=== PATIENT | male | born 1995 | race Caucasian/White ===

== ENCOUNTER 2019-10-18 12:57 | Inpatient (IN) | payer BC, OTHER ==
[2019-10-18] MEDS ORDERED: KETOROLAC 30 MG/ML 1 ML VIAL IM STA (13:33)
--- NOTE | 2019-10-18 13:35 | ED ---
General Adult HPI - General Chief complaint: Upper Respiratory Infection Stated complaint: Chest pain, Cough Time Seen by Provider: 10/18/19 13:24 Source: patient, family Mode of arrival: ambulatory Limitations: no limitations - History of Present Illness Initial comments: Dictation was produced using [employer] dictation software. please excuse any grammatical, word or spelling errors. Chief Complaint: 24-year-old male presents with persistent chest pain cough and URI symptoms. History of Present Illness: 24-year-old male presents with persistent URI symptoms. 3 days ago he was seen at urgent care prescribed Z-Lalit and promethazine. Patient states that his symptoms are going away green party and to come to the emergency department. Patient states he has sharp chest pain is worse with deep inspiration. States that it's very prominent especially when he coughs. No nausea vomiting or diarrhea. Patient states she's been having some runny nose. He was at work and told to go home because he had a hard time working because of his illness. The ROS documented in this emergency department record has been reviewed and confirmed by me. Those systems with pertinent positive or negative responses have been documented in the HPI. All other systems are other negative and/or noncontributory. PHYSICAL EXAM: General Impression: Alert and oriented x3, not in acute distress HEENT: Normocephalic atraumatic, extra-ocular movements intact, pupils equal and reactive to light bilaterally, mucous membranes moist. Cardiovascular: Heart regular rate and rhythm, S1&S2 audible, no murmurs, rubs or gallops Chest: Lungs clear to auscultation bilaterally, no rhonchi, no wheeze, no rales Abdomen: Bowel sounds present, abdomen soft, non-tender, non-distended, no organomegaly Musculoskeletal: Pulses present and equal in all extremities, no peripheral edema Motor: no focal deficits noted Neurological: CN II-XII grossly intact, no focal motor or sensory deficits noted Skin: Intact with no visualized rashes Psych: Normal affect and mood ED course: 24-year-old male presents with persistent URI. Signs upon arrival are within acceptable limits. Chest x-ray shows multilobar pneumonia worse in the left lower lung ann with left pleural effusion. Patient continues to be tachycardic. Given intravenous fluids. Patient also slightly hypoxic and is placed on nasal cannula. Given degree of patient symptoms have patient admitted for pneumonia failed outpatient treatment. Patient started on Zosyn. Discussed patient case with Dr. Mendoza was went except patient care. EKG interpretation: Ventricular rate 126, sinus tachycardia,. Interval 1:30, care is 80, QTc 463. No CO prolongation, no QTC prolongation, no ST or T-wave changes noted. EKG was performed after patient had a coughing fit. - Related Data Home Medications Medication Instructions Recorded Confirmed Azithromycin [Zithromax Z-pack] See Taper PO DIRECTED 10/18/19 10/18/19 Ibuprofen [Motrin Ib] 400 mg PO Q6H PRN 10/18/19 10/18/19 Promethazine 6.25MG/5Ml [Phenergan 6.25 - 12.5 mg PO QID PRN 10/18/19 10/18/19 Syrup] Allergies Allergy/AdvReac Type Severity Reaction Status Date / Time No Known Allergies Allergy Verified 10/18/19 15:25 Review of Systems ROS Statement: Those systems with pertinent positive or pertinent negative responses have been documented in the HPI. ROS Other: All systems not noted in ROS Statement are negative. Past Medical History Past Medical History: No Reported History History of Any Multi-Drug Resistant Organisms: None Reported Past Surgical History: No Surgical Hx Reported Past Psychological History: No Psychological Hx Reported Smoking Status: Never smoker Past Alcohol Use History: None Reported Past Drug Use History: None Reported General Exam Limitations: no limitations Course Vital Signs 10/18/19 10/18/19 10/18/19 13:06 14:42 15:06 Temperature 98.8 F Pulse Rate 92 114 H 120 H Respiratory 18 16 20 Rate Blood Pressure 124/80 120/87 129/89 O2 Sat by Pulse 98 86 L 95 Oximetry Medical Decision Making - Lab Data Result diagrams: 10/18/19 14:43 Lab Results 10/18/19 10/18/19 10/18/19 Range/Units 13:33 14:43 14:43 Sodium 137 (137-145) mmol/L Potassium 4.7 (3.5-5.1) mmol/L Chloride 100 (98-107) mmol/L Carbon Dioxide 28 (22-30) mmol/L Anion Gap 9 mmol/L BUN 19 (9-20) mg/dL Creatinine 0.90 (0.66-1.25) mg/dL Est GFR (CKD-EPI)AfAm >90 (>60 ml/min/1.73 sqM) Est GFR (CKD-EPI)NonAf >90 (>60 ml/min/1.73 sqM) Glucose 112 H (74-99) mg/dL Plasma Lactic Acid Adria 1.6 (0.7-2.0) mmol/L Calcium 8.5 (8.4-10.2) mg/dL Influenza Type A RNA Not Detected (Not Detectd) Influenza Type B (PCR) Not Detected (Not Detectd) Disposition Clinical Impression: Pneumonia Disposition: ADMITTED IP TO THIS HOSP Condition: Fair Referrals: None,Stated [Primary Care Provider] - 1-2 days Decision Time: 16:07
--- NOTE | 2019-10-18 13:57 | XR ---
EXAMINATION TYPE: XR chest 2V DATE OF EXAM: 10/18/2019 COMPARISON: Chest x-ray December 23, 2013. HISTORY: Cough. TECHNIQUE: Frontal and lateral views of the chest are obtained. FINDINGS: There is new Left greater than right lower lung opacities. Small left pleural effusion is present. Upper lungs are clear without pneumothorax. The cardiac silhouette size is within normal li mits. The osseous structures are intact. IMPRESSION: New left greater than right lower lung acute infiltrate and/or atelectasis along with ne w small left pleural effusion.
[2019-10-18] MEDS ORDERED: SODIUM CHLORIDE 0.9% 1,000 ML IV STA (14:20)
[2019-10-18 15:02] LABS: African American GFR (CKD) >90 (>60 ml/min/1.73 sqM); Anion Gap 9 mmol/L; Blood Urea Nitrogen 19 mg/dL (9-20); Calcium 8.5 mg/dL (8.4-10.2); Carbon Dioxide 28 mmol/L (22-30); Chloride 100 mmol/L (98-107); Glucose 112 mg/dL (74-99); Non-African American GFR(CKD) >90 (>60 ml/min/1.73 sqM); Sodium 137 mmol/L (137-145)
[2019-10-18 15:16] LABS: Potassium 4.7 mmol/L (3.5-5.1)
[2019-10-18] MEDS ORDERED: PIPERACILLIN-TAZOBACTAM 3.375 GM in SODIUM CHLORIDE 0.9% 100 ML IVPB STA (15:58)
[2019-10-18] MEDS ORDERED: ONDANSETRON 4 MG/2 ML VIAL IVP PRN (16:02)
[2019-10-18] MEDS ORDERED: ACETAMINOPHEN TAB 325 MG TAB PO PRN (16:02)
[2019-10-18] MEDS ORDERED: NALOXONE 0.4 MG/ML 1 ML VIAL IV PRN (16:02)
[2019-10-18 16:26] LABS: Neutrophils % (M) 54 %; Nucleated Red Blood Cells 0 /100 WBC (0-0); Total Cells Counted 100
[2019-10-18 16:28] LABS: Platelet Count 18 k/uL (150-450)
[2019-10-18] MEDS ORDERED: VANCOMYCIN IV PER PHARMACY 1 EACH MISC MISCELLANE PRN (16:37)
[2019-10-18 16:38] LABS: Eosinophils # (M) 0.27 k/uL (0-0.7); Lymphocytes # (M) 5.48 k/uL (1.0-4.8); Monocytes # (M) 0.55 k/uL (0-1.0); WBC 13.7 k/uL (3.8-10.6)
[2019-10-18 16:39] LABS: HCT 47.2 % (39.0-53.0); HGB 16.3 gm/dL (13.0-17.5); MCH 28.6 pg (25.0-35.0); MCHC 34.5 g/dL (31.0-37.0); MCV 82.8 fL (80.0-100.0); Mean Platelet Volume 10.2; RBC 5.69 m/uL (4.30-5.90); RDW 12.4 % (11.5-15.5)
[2019-10-18 16:40] LABS: Eosinophils % (A) 2 %; Lymphocytes % (A) 40 %; Monocytes % (A) 4 %; Neutrophils % (A) 54 %
[2019-10-18] MEDS ORDERED: RX INFO: IV CONTRAST WAS GIVEN 1 EACH MISC MISCELLANE PRN (16:41)
[2019-10-18 16:43] LABS: Eosinophils # (A) 0.3 k/uL (0-0.7); Lymphocytes # (A) 5.5 k/uL (1.0-4.8); Monocytes # (A) 0.6 k/uL (0-1.0); Neutrophils # (A) 7.4 k/uL (1.3-7.7)
[2019-10-18] MEDS ORDERED: VANCOMYCIN 1,500 MG in SODIUM CHLORIDE 0.9% 250 ML IVPB STA (16:43)
--- NOTE | 2019-10-18 17:12 | CT ---
EXAMINATION TYPE: CT chest w con DATE OF EXAM: 10/18/2019 COMPARISON: None HISTORY: Cough and chest pain CT DLP: 427.1 mGycm Automated exposure control for dose reduction was used. CONTRAST: CT scan of the chest is performed with IV Contrast, patient injected with 100 mL of Isovue 300. FINDINGS: There are bilateral pleural effusions. Heart size is normal. There is very small pericardial effusion . There is bilateral basilar atelectasis. There is bilateral basilar mild pulmonary infiltrates. I se e no hilar masses. There is no mediastinal adenopathy. Thoracic aorta is intact without evidence of a neurysm or dissection. Visualized thyroid gland appears normal. Upper abdominal soft tissues appear intact. IMPRESSION: Moderately large bilateral pleural effusions. Bilateral lower lobe pulmonary adjacent in filtrate and atelectasis. Small pericardial effusion. No pulmonary mass seen.
[2019-10-18 17:44] LABS: VBG PH 7.42 (7.31-7.41)
[2019-10-18] MEDS: SODIUM CHLORIDE 0.9% 1,000 ML IV SCH (17:51)
[2019-10-18 17:59] LABS: Partial Thromboplastin Time 21.9 sec (22.0-30.0); Prothrombin Time 10.8 sec (9.0-12.0)
--- NOTE | 2019-10-18 18:37 | P.CNPUL ---
History of Present Illness Consult date: 10/18/19 Reason for consult: dyspnea, pleural effusion History of present illness: This is a 24-year-old pleasant white male patient, who came into the hospital because of worsening shortness of breath. His symptoms started approximately 7- 10 days ago. He initially started off with symptoms of URI. Progressively got worse. He went and saw the urgent care on and he was given a course of Z-Lalit and promethazine. His condition progressively got worse and he became more short of breath as he was having some painful breathing and he was unable to fully expand his lungs. Minimal sore throat. [place] feverish and there was no documented temperature. He had some runny nose. He had some limited congested cough. He came into the emergency department and he was found to have a white cell count of 13.7, platelet count of 18,000, neutrophil of 54,000 with a 40% lymphocytes, his PT PTT were within normal limits, his influenza screen was n egative. He had a chest x-ray that showed bilateral lower lobe pulmonary infiltrates and effusions. CAT scan of the chest showed moderate-sized bilateral pleural effusions and adjacent infiltrates/atelectasis. Small pericardial effusion was also seen Clinically, the patient is a healthy male patient. No recent travel. No exposure to sick contacts. No history of any EBV infection and he was not considered to be promiscuous or at the high risk of having been exposed to HIV. No jaundice. No previous viral hepatitis. 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 In the emergency department, the patient was given a dose of vancomycin and Zosyn. He was admitted to the floor accordingly. No bleeding complications. No epistaxis. No headaches. No neck stiffness. No skin rashes. No 72 rheumatologic disease or arthritis. No smoking. No substance abuse. It is also worthwhile mentioning that the patient got a flu shot approximately 3 weeks ago for a local pharmacy and since then his condition is been progressively getting worse. He developed the symptoms of URI and subsequent shortness of breath since he got the flu shot. Review of Systems Constitutional: Reports fatigue, Reports weakness Eyes: denies as per HPI, denies blurred vision, denies bulging eye, denies decreased vision, denies diplopia, denies discharge, denies dry eye, denies irritation, denies itching, denies pain, denies photophobia, denies loss of peripheral vision, denies loss of vision, denies tunnel vision/blind spots Ears: deny: decreased hearing, ear discharge, earache, tinnitus Ears, nose, mouth and throat: Denies headache, Denies sore throat Cardiovascular: Reports chest pain, Reports decreased exercise tolerance, Reports dyspnea on exertion, Reports shortness of breath Respiratory: Reports dyspnea Gastrointestinal: Denies abdominal pain, Denies diarrhea, Denies nausea, Denies vomiting Genitourinary: Reports as per HPI Musculoskeletal: Reports as per HPI Musculoskeletal: absent: ankle pain, ankle stiffness, ankle swelling, as per HPI, elbow pain, elbow stiffness, elbow swelling, foot pain, foot stiffness, foot swelling, hand pain, hand stiffness, hand swelling, hip pain, hip stiffness, hip swelling, knee pain, knee stiffness, knee swelling, shoulder pain, shoulder stiffness, shoulder swelling, wrist pain, wrist stiffness, wrist swelling Integumentary: Reports as per HPI Neurological: Reports as per HPI Psychiatric: Reports as per HPI Endocrine: Reports as per HPI Allergic/Immunologic: Reports as per HPI Past Medical History Past Medical History: No Reported History History of Any Multi-Drug Resistant Organisms: None Reported Past Surgical History: No Surgical Hx Reported Past Psychological History: No Psychological Hx Reported Smoking Status: Never smoker Past Alcohol Use History: None Reported Past Drug Use History: None Reported Medications and Allergies Home Medications Medication Instructions Recorded Confirmed Type Azithromycin [Zithromax Z-pack] See Taper PO DIRECTED 10/18/19 10/18/19 History Ibuprofen [Motrin Ib] 400 mg PO Q6H PRN 10/18/19 10/18/19 History Promethazine 6.25MG/5Ml [Phenergan 6.25 - 12.5 mg PO QID PRN 10/18/19 10/18/19 History Syrup] Allergies Allergy/AdvReac Type Severity Reaction Status Date / Time No Known Allergies Allergy Verified 10/18/19 15:25 Physical Exam Vitals: Vital Signs Temp Pulse Resp BP Pulse Ox 10/18/19 17:57 115 H 20 124/87 99 10/18/19 17:30 108 H 14 121/78 96 10/18/19 16:30 105 H 22 115/77 96 10/18/19 16:21 98.4 F 101 H 20 115/78 98 10/18/19 16:00 100 21 129/94 95 10/18/19 15:06 120 H 20 129/89 95 10/18/19 14:42 114 H 16 120/87 86 L 10/18/19 14:30 114 H 20 120/80 86 L 10/18/19 13:06 98.8 F 92 18 124/80 98 Intake and Output 10/18/19 10/18/19 10/18/19 06:59 14:59 22:59 Other: Weight 92.986 kg The patient appeared well nourished and normally developed. Vital signs as documented. Currently the patient is on 2 L of oxygen by nasal cannula. He is tachycardic and his sinus tachycardia. Head exam is unremarkable. No scleral icterus or corneal arcus noted. Neck is without jugular venous distension, thyromegaly, or carotid bruits. Carotid upstrokes are brisk bilaterally. Lungs are diminished breath sounds bilaterally and there is dullness to percussion the mid and lower lung ann bilaterally.. Cardiac exam reveals the PMI to be normally sized and situated. Rhythm is regular. First and second heart sounds normal. No murmurs, rubs or gallops. Abdominal exam reveals normal bowel sounds, no masses, no organomegaly and no aortic enlargement. Extremities are nonedematous and both femoral and pedal pulses are normal.Examination of the sk in revealed no evidence of significant rashes, suspicious appearing nevi or other concerning lesions. Neurologically awake and alert and is no focal neurological deficits. Results - Laboratory Findings CBC and BMP: 10/18/19 15:43 10/18/19 14:43 PT/INR, D-dimer PT 10.8 sec (9.0-12.0) 10/18/19 17:35 INR 1.0 (<1.2) 10/18/19 17:35 Abnormal lab findings: Abnormal Labs 10/18/19 10/18/19 10/18/19 14:43 15:43 17:12 WBC 13.7 H Plt Count 18 L* Lymphocytes # 5.5 H Lymphocytes # (Manual) 5.48 H APTT VBG pH 7.42 H Glucose 112 H 10/18/19 17:35 WBC Plt Count Lymphocytes # Lymphocytes # (Manual) APTT 21.9 L VBG pH Glucose - Diagnostic Findings Chest x-ray: image reviewed CT scan - chest: image reviewed Assessment and Plan Plan: 1 severe acute shortness of breath following a flu shot approximately 3 weeks ago followed by symptoms of URI and currently patient is presenting to the hospital because of moderate-sized bilateral pleural effusion, hypoxic respiratory failure, worsening shortness of breath and new onset thrombocytopenia. Consider reaction to flu shot as flu shots have been reported to cause immune related reactions including [place] cytopenia. Consider viral p leuritis with secondary thrombocytopenia. I favor the possibility of an acute viral infection knowing the patient has significant lymphocytosis in the order of 40% and his CBC. Doubt bacterial infection at this point in time. Doubt malignancy. Doubt an acute rheumatologic presentation. 2 acute hypoxic respiratory failure secondary to above 3 acute thrombocytopenia, consider viral-induced ITP versus vaccination-induced 4 sinus tachycardia Plan Put the patient on IV Solu-Medrol. Check EBV titers, CMV titers, HIV cardiac markers. Monitor the platelet count. Obtain a hematology consultation. Unable to do thoracentesis in the setting of a significantly low platelet count however this will be done once the platelet count improved since above 50. Meanwhile, the patient's pulmonary status will be monitored and the patient was replaced on 2 L of oxygen by nasal cannula. The patient was given antibiotics in the emergency. I will hold off on antibiotic treatment for now pending further workup. We'll continue to follow.
[2019-10-18] MEDS: methylPREDNISolone SOD SUCCI 125 MG/2 ML VIAL IV SCH (19:59)
--- NOTE | 2019-10-18 20:14 | HP ---
HISTORY AND PHYSICAL DATE OF SERVICE: 10/18/2019 CHIEF COMPLAINTS: Shortness of breath and cough and sputum, chest pain. HISTORY OF PRESENT ILLNESS: This 24-year-old gentleman with a past medical history of no significant medical issues, not being followed by any primary physician in the outpatient setting, was not feeling well over the past several weeks. The patient started to have cough and sputum which were increasing in intensity. Patient also had shortness of breath. The pain is mostly in the left side which is increasing with respiration. Patient came to [facility] and was admitted for further evaluation and treatment. White count is elevated. Chest x-ray showed bilateral lesions. Patient also had thrombocytopenia. The patient also had a CT scan of the chest which showed moderately large bilateral pleural effusion; bilateral pulmonary opacities were also noted and small pericardial effusion was noted. Patient was admitted for further evaluation and treatment. The EKG showed sinus tachycardia, heart rate 126. There is no history of any fever, rigors, chills. No history of headache, loss of consciousness, seizures. No history any recent traveling elsewhere. No history of any sick contacts; however, the patient reports that the patient apparently was walking back and forth about 5 miles at night in cold weather to see movies at [employer] with his friends on multiple occasions. Apparently there were sick people in the theater as well. There is no history of any diarrhea, constipation, hematochezia, melena at this time. No history of any contact with infected or unusual pets. The patient was planning to be seen by Dr. España in the outpatient setting. PAST MEDICAL HISTORY: No significant medical or surgical issues. MEDICATIONS: The patient was taking promethazine, Zithromax, ibuprofen recently for the upper respiratory infection. ALLERGIES: NONE. 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 No history of smoking. No history of alcohol intake. No history of any vaping. REVIEW OF SYSTEMS: ENT: No diminished hearing. No diminished vision. CARDIOVASCULAR SYSTEM: No angina, palpitations. RESPIRATORY SYSTEM: As mentioned earlier. GI: As mentioned earlier. : No dysuria or retention. NERVOUS SYSTEM: No numbness, weakness. ALLERGY/IMMUNOLOGY: No asthma, hayfever. MUSCULOSKELETAL: As mentioned earlier. HEMATOLOGY/ONCOLOGY: No history of anemia. ENDOCRINE: No history of diabetes, hypothyroidism. CONSTITUTIONAL: As mentioned earlier. DERMATOLOGY: Negative. RHEUMATOLOGY: Negative. PSYCHIATRY: As mentioned earlier. PHYSICAL EXAMINATION: Patient alert and oriented x3. Pulse is 115, regular. Blood pressure 124/87, respiration 20, temperature 98.4, pulse ox 99% on 2 L. HEENT: Conjunctivae normal. Oral mucosa moist. NECK: No jugular venous distention. No carotid bruit. No lymph node enlargement. CARDIOVASCULAR SYSTEM: S1, S2 muffled. No S3. No S4. No pericardial rub. RESPIRATORY: Breathing efforts are mildly increased. Bilateral scattered rhonchi and crackles and pleural rub around the left lobe, part of where the breath sounds are markedly diminished. ABDOMEN: Soft, non-tender. No mass palpable. No hepatosplenomegaly. LEGS: No edema. No swelling. NERVOUS SYSTEM: Higher functions as mentioned earlier. Moves all 4 limbs. No focal motor or sensory deficit. LYMPHATICS: No lymph node palpable in neck, axillae or groin. SKIN: No ulcer, rash, bleeding. JOINTS: No active deforming arthropathy. LABS: WBC 13.3, hemoglobin 16.3, platelets 18. ASSESSMENT: 1. Acute bilateral pneumonia with possible left pleural effusion, left pleurisy, possibly viral. 2. Increased white count. 3. Severe thrombocytopenia, possibly secondary to viral etiology. 4. Increased random blood sugar. RECOMMENDATIONS AND DISCUSSION: In this 24-year-old gentleman who presented with multiple complex medical issues, at this time I recommend to continue current medications. His chest x-ray has been reviewed which showed bilateral lesions. The patient is given one dose of antibiotics. Dr. Soriano will review the patient and resume the antibiotics later. Otherwise, I would recommend baseline investigations, viral cultures. I would also recommend mycoplasma and Legionella antibodies and continue to monitor. Otherwise, DVT prophylaxis, incentive spirometry. Hematology/ oncology evaluation also has been sought because of the thrombocytopenia, which is rather acute in nature. Discussed with the patient. Discussed with the family, who understands and agrees. Further recommendations to follow. MMODL / IJN: [id number] /
[2019-10-18] MEDS: HYDROcodone/APAP 5-325MG 1 EACH TAB PO PRN (21:14)
[2019-10-19] MEDS ORDERED: VANCOMYCIN 1,500 MG in SODIUM CHLORIDE 0.9% 250 ML IVPB SCH ×2
[2019-10-19] MEDS: methylPREDNISolone SOD SUCCI 125 MG/2 ML VIAL IV SCH ×5 (00:19→23:31)
[2019-10-19] MEDS: SODIUM CHLORIDE 0.9% 1,000 ML IV SCH ×2 (00:19→23:32)
[2019-10-19 00:24] LABS: HIV 1 AB Non-Reactive (Non-Reactive); HIV 2 AB Non-Reactive (Non-Reactive); HIV AB P24 Non-Reactive (Non-Reactive); HIV P24 AG Non-Reactive (Non-Reactive)
[2019-10-19 00:40] LABS: EBV-EA (IgG) <0.2 AI; EBV-EBNA(IgG) >8.0 AI; EBV-VCA (IgG) <0.2 AI; EBV-VCA (IgM) <0.2 AI
[2019-10-19] MEDS: ALPRAZolam 0.25 MG TAB PO PRN (01:46)
[2019-10-19 02:21] LABS: Appearance,Urine Clear (Clear); Bilirubin,Urine Negative (Negative); Blood,Urine Negative (Negative); Color,Urine Yellow; Glucose,Urine (UA) Negative (Negative); Ketones,Urine 2+ (Negative); Leukocyte Esterase,Urine Negative (Negative); Mucus,Urine Few /hpf; Nitrite,Urine Negative (Negative); Protein,Urine 1+ (Negative); RBC,Urine 3 /hpf (0-5); Squamous Epithelial Cell,Urine <1 /hpf (0-4); Urobilinogen,Urine <2.0 mg/dL (<2.0); WBC,Urine 1 /hpf (0-5)
[2019-10-19 02:55] LABS: Specific Gravity,Urine >1.050 (1.001-1.035)
[2019-10-19] MEDS: PANTOPRAZOLE 40 MG TABLET PO SCH (07:28)
[2019-10-19 07:39] LABS: Basophils % (A) 0 %; Eosinophils % (A) 0 %; HGB 15.2 gm/dL (13.0-17.5); Lymphocytes # (A) 1.3 k/uL (1.0-4.8); Lymphocytes % (A) 12 %; MCH 28.9 pg (25.0-35.0); MCHC 34.7 g/dL (31.0-37.0); MCV 83.4 fL (80.0-100.0); Mean Platelet Volume 8.8; Monocytes # (A) 0.2 k/uL (0-1.0); Monocytes % (A) 2 %; Neutrophils # (A) 9.3 k/uL (1.3-7.7); Neutrophils % (A) 85 %; RBC 5.27 m/uL (4.30-5.90); RDW 12.6 % (11.5-15.5); WBC 10.9 k/uL (3.8-10.6)
[2019-10-19 07:56] LABS: African American GFR (CKD) >90 (>60 ml/min/1.73 sqM); Anion Gap 7 mmol/L; Blood Urea Nitrogen 16 mg/dL (9-20); Calcium 8.3 mg/dL (8.4-10.2); Carbon Dioxide 24 mmol/L (22-30); Chloride 106 mmol/L (98-107); Glucose 144 mg/dL (74-99); Non-African American GFR(CKD) >90 (>60 ml/min/1.73 sqM); Potassium 4.3 mmol/L (3.5-5.1); Sodium 137 mmol/L (137-145)
[2019-10-19 08:10] LABS: Platelet Count 29 k/uL (150-450); Polychromasia Present
--- NOTE | 2019-10-19 08:49 | XR ---
EXAMINATION TYPE: XR chest 1V portable DATE OF EXAM: 10/19/2019 CLINICAL HISTORY: Cough and pneumonia progress study. TECHNIQUE: Single AP portable upright view of the chest is obtained. COMPARISON: Chest x-ray and CT chest from one day earlier and older studies. FINDINGS: Persistent left greater than right bibasilar opacities. Persistent central vascular conges tion. Upper lungs clear without pneumothorax. Cardiac silhouette size remains within normal limits. O sseous structures are intact. IMPRESSION: Overall stable findings, small bilateral pleural effusions and mild central vascular co ngestion with left greater than right bibasilar acute infiltrate and/or atelectasis are all redemonst rated
--- NOTE | 2019-10-19 12:28 | P.PN ---
Subjective Progress Note Date: 10/19/19 This is a 24-year-old pleasant white male patient, who came into the hospital because of worsening shortness of breath. His symptoms started approximately 7- 10 days ago. He initially started off with symptoms of URI. Progressively got worse. He went and saw the urgent care on and he was given a course of Z-Lalit and promethazine. His condition progressively got worse and he became more short of breath as he was having some painful breathing and he was unable to fully expand his lungs. Minimal sore throat. Hemphill feverish and there was no documented temperature. He had some runny nose. He had some limited congested cough. He came into the emergency department and he was found to have a white cell count of 13.7, platelet count of 18,000, neutrophil of 54,000 with a 40% lymphocytes, his PT PTT were within normal limits, his influenza screen was negative. He had a chest x-ray that showed bilateral lower lobe pulmonary infiltrates and effusions. CAT scan of the chest showed moderate-sized bilateral pleural effusions and adjacent infiltrates/atelectasis. Small pericardial effusion was also seen Clinically, the patient is a healthy male patient. No recent travel. No expos ure to sick contacts. No history of any EBV infection and he was not considered to be promiscuous or at the high risk of having been exposed to HIV. No jaundice. No previous viral hepatitis. 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 In the emergency department, the patient was given a dose of vancomycin and Zosyn. He was admitted to the floor accordingly. No bleeding complications. No epistaxis. No headaches. No neck stiffness. No skin rashes. No 72 rheumatologic disease or arthritis. No smoking. No substance abuse. It is also worthwhile mentioning that the patient got a flu shot approximately 3 weeks ago for a local pharmacy and since then his condition is been progressively getting worse. He developed the symptoms of URI and subsequent shortness of breath since he got the flu shot. His evaluation of 10/19/2019 the patient is feeling better. He feels less short of breath. No fever. No chills. He is receiving IV fluids at the rate of 50 mL an hour. He is tolerating his diet. No nausea. No vomiting. No chest pain. EBV titers came back negative for acute EBV infection. HIV screen also came back negative. The patient is on IV Solu-Medrol. His platelet count is improving it's up to 29,000 on today's evaluation. He is still awaiting a hematology oncology evaluation. Objective - Vital Signs Vital signs: Vital Signs Temp 97.9 F 10/19/19 12:21 Pulse 100 10/19/19 12:21 Resp 17 10/19/19 12:21 BP 142/71 10/19/19 12:21 Pulse Ox 93 L 10/19/19 12:21 Intake & Output 10/18/19 10/19/19 10/19/19 18:59 06:59 18:59 Intake Total 2810 Balance 2810 Weight 92.986 kg 92.986 kg Intake: Intake, IV Titration 450 Amount Sodium Chloride 0.9% 1, 450 000 ml @ 50 mls/hr IV . Q20H [facility] Rx#:[id number] Oral 2360 Other: Voiding Method Toilet Toilet # Voids 3 # Bowel Movements 1 - Exam The patient appeared well nourished and normally developed. Vital signs as documented. Currently the patient is on 2 L of oxygen by nasal cannula. He is tachycardic and his sinus tachycardia. Head exam is unremarkable. No scleral icterus or corneal arcus noted. Neck is without jugular venous distension, thyromegaly, or carotid bruits. Carotid upstrokes are brisk bilaterally. Lungs are diminished breath sounds bilaterally and there is dullness to percussion the mid and lower lung ann bilaterally.. Cardiac exam reveals the PMI to be normally sized and situated. Rhythm is regular. First and second heart sounds normal. No murmurs, rubs or gallops. Abdominal exam reveals normal bowel sounds, no masses, no organomegaly and no aortic enlargement. Extremities are nonedematous and both femoral and pedal pulses are normal.Examination of the skin revealed no evidence of significant rashes, suspicious appearing nevi or other concerning lesions. Neurologically awake and alert and is no focal neurological deficits. - Labs CBC & Chem 7: 10/19/19 07:00 10/19/19 07:00 Labs: Abnormal Lab Results - Last 24 Hours (Table) 10/18/19 10/18/19 10/18/19 Range/Units 14:43 15:43 15:43 WBC 13.7 H (3.8-10.6) k/uL Plt Count 18 L* (150-450) k/uL Neutrophils # (1.3-7.7) k/uL Lymphocytes # 5.5 H (1.0-4.8) k/uL Lymphocytes # (Manual) 5.48 H (1.0-4.8) k/uL APTT (22.0-30.0) sec VBG pH (7.31-7.41) Glucose 112 H (74-99) mg/dL Calcium (8.4-10.2) mg/dL C-Reactive Protein (<10.0) mg/L Ur Specific [place] (1.001-1.035) Urine Protein (Negative) Urine Ketones (Negative) Urine Mucus (None) /hpf EBV Nuc Ag IgG Interp POSITIVE H (NEGATIVE) 10/18/19 10/18/19 10/18/19 Range/Units 17:12 17:35 17:35 WBC (3.8-10.6) k/uL Plt Count (150-450) k/uL Neutrophils # (1.3-7.7) k/uL Lymphocytes # (1.0-4.8) k/uL Lymphocytes # (Manual) (1.0-4.8) k/uL APTT 21.9 L (22.0-30.0) sec VBG pH 7.42 H (7.31-7.41) Glucose (74-99) mg/dL Calcium (8.4-10.2) mg/dL C-Reactive Protein 54.3 H (<10.0) mg/L Ur Specific [place] (1.001-1.035) Urine Protein (Negative) Urine Ketones (Negative) Urine Mucus (None) /hpf EBV Nuc Ag IgG Interp (NEGATIVE) 10/19/19 10/19/19 10/19/19 Range/Units 02:05 07:00 07:00 WBC 10.9 H (3.8-10.6) k/uL Plt Count 29 L D (150-450) k/uL Neutrophils # 9.3 H (1.3-7.7) k/uL Lymphocytes # (1.0-4.8) k/uL Lymphocytes # (Manual) (1.0-4.8) k/uL APTT (22.0-30.0) sec VBG pH (7.31-7.41) Glucose 144 H (74-99) mg/dL Calcium 8.3 L (8.4-10.2) mg/dL C-Reactive Protein (<10.0) mg/L Ur Specific [place] >1.050 H (1.001-1.035) Urine Protein 1+ H (Negative) Urine Ketones 2+ H (Negative) Urine Mucus Few H (None) /hpf EBV Nuc Ag IgG Interp (NEGATIVE) Assessment and Plan Plan: 1 severe acute shortness of breath following a flu shot approximately 3 weeks ago followed by symptoms of URI and currently patient is presenting to the hospital because of moderate-sized bilateral pleural effusion, hypoxic respirat ory failure, worsening shortness of breath and new onset thrombocytopenia. Consider reaction to flu shot as flu shots have been reported to cause immune related reactions including thrombocytopenia. Consider viral pleuritis with secondary thrombocytopenia. I favor the possibility of an acute viral infection knowing the patient has significant lymphocytosis in the order of 40% and his CBC. Doubt bacterial infection at this point in time. Doubt malignancy. Doubt an acute rheumatologic presentation. 2 acute hypoxic respiratory failure secondary to above 3 acute thrombocytopenia, consider viral-induced ITP versus vaccination-induced 4 sinus tachycardia Plan Put the patient on IV Solu-Medrol. Continue monitoring the platelet counts. We'll proceed with a thoracentesis once the platelet count improves as above 50.
[2019-10-19] MEDS: AZITHROMYCIN 500 MG in SODIUM CHLORIDE 0.9% 250 ML IVPB SCH (15:12)
[2019-10-19] MEDS ORDERED: ALBUTEROL NEBULIZED 2.5 MG/3 ML INHALATION PRN (17:27)
[2019-10-19] MEDS: INSULIN ASPART (NovoLOG) 100 UNIT/ML VIAL SQ SCH ×2 (17:59→22:13)
--- NOTE | 2019-10-19 18:32 | P.CONS ---
History of Present Illness - Reason for Consult Consult date: 10/19/19 acute thrombocytopenia - History of Present Illness This is a very pleasant 24-year-old gentleman with no significant past medical history other than low IQ, who was not feeling well over the past several weeks developed cough and sputum production and 17 and shortness of breath or pain on the left side which was increasing subsequently came to the hospital for further evaluation had a chest x-ray done that showed bilateral lesions and significant thrombocytopenia. The patient had a CAT scan of chest which showed large bilateral pleural effusion with pulmonary opacities. Patient was tachycardic as well .The patient has been evaluated by pulmonary, and antibiotics have been started. However patient is getting more short of breath. On review of labs white count of 13,000 elevated, platelet count has dropped to 18,000 with neutrophil count Elevated. As such no recent history of infections. 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 History of Any Multi-Drug Resistant Organisms: None Reported Past Surgical History: No Surgical Hx Reported Past Psychological History: No Psychological Hx Reported Smoking Status: Never smoker Past Alcohol Use History: None Reported Past Drug Use History: None Reported - Past Family History Father Family Medical History: No Reported History Medications and Allergies Home Medications Medication Instructions Recorded Confirmed Type Azithromycin [Zithromax Z-pack] See Taper PO DIRECTED 10/18/19 10/18/19 History Ibuprofen [Motrin Ib] 400 mg PO Q6H PRN 10/18/19 10/18/19 History Promethazine 6.25MG/5Ml [Phenergan 6.25 - 12.5 mg PO QID PRN 10/18/19 10/18/19 History Syrup] Allergies Allergy/AdvReac Type Severity Reaction Status Date / Time No Known Allergies Allergy Verified 10/18/19 15:25 Physical Exam Vitals: Vital Signs Temp Pulse Resp BP Pulse Ox 10/19/19 15:29 100 17 10/19/19 12:21 97.9 F 100 17 142/71 93 L 11/28/19 08:00 85 16 10/19/19 05:37 96.7 F L 85 16 119/76 92 L 10/18/19 23:26 92 L 10/18/19 23:00 97.4 F L 101 H 16 138/81 90 L Intake and Output 10/19/19 10/19/19 10/19/19 06:59 14:59 22:59 Intake Total 1630 860 360 Output Total 800 Balance 1630 860 -440 Intake: Intake, IV Titration 450 500 Amount Sodium Chloride 0.9% 1, 450 400 000 ml @ 50 mls/hr IV . Q20H [facility] Rx#:[id number] cefTRIAXone 1 gm In 100 Sodium Chloride 0.9% 50 ml @ 100 mls/hr IVPB Q24HR [facility] Rx#:[id number] Oral 1180 360 360 Output: Urine 800 Other: Voiding Method Toilet Toilet # Voids 3 3 3 # Bowel Movements 1 The patient appeared well nourished and normally developed. Vital signs as documented. Head exam is unremarkable. No scleral icterus or corneal arcus noted. Neck is without jugular venous distension, thyromegaly, or carotid bruits. Carotid upstrokes are brisk bilaterally. Lungs are clear to auscultation and percussion. Cardiac exam reveals the PMI to be normally sized and situated. Rhythm is regular. First and second heart sounds normal. No murmurs, rubs or gallops. Abdominal exam reveals normal bowel sounds, no masses, no organomegaly and no aortic enlargement. Extremities are nonedematous and both femoral and pedal pulses are normal. Results CBC & Chem 7: 10/19/19 07:00 10/19/19 07:00 Labs: Abnormal Lab Results - Last 24 Hours (Table) 10/18/19 10/18/19 10/19/19 Range/Units 15:43 17:35 02:05 WBC (3.8-10.6) k/uL Plt Count (150-450) k/uL Neutrophils # (1.3-7.7) k/uL Glucose (74-99) mg/dL Calcium (8.4-10.2) mg/dL C-Reactive Protein 54.3 H (<10.0) mg/L Ur Specific [place] >1.050 H (1.001-1.035) Urine Protein 1+ H (Negative) Urine Ketones 2+ H (Negative) Urine Mucus Few H (None) /hpf EBV Nuc Ag IgG Interp POSITIVE H (NEGATIVE) 10/19/19 10/19/19 Range/Units 07:00 07:00 WBC 10.9 H (3.8-10.6) k/uL Plt Count 29 L D (150-450) k/uL Neutrophils # 9.3 H (1.3-7.7) k/uL Glucose 144 H (74-99) mg/dL Calcium 8.3 L (8.4-10.2) mg/dL C-Reactive Protein (<10.0) mg/L Ur Specific [place] (1.001-1.035) Urine Protein (Negative) Urine Ketones (Negative) Urine Mucus (None) /hpf EBV Nuc Ag IgG Interp (NEGATIVE) Microbiology - Last 24 Hours (Table) 10/18/19 14:43 Blood Culture - Preliminary Blood No Growth after 24 hours Chest x-ray: report reviewed CT scan - chest: report reviewed (pneumonia with bilateral pleural effusions:) Assessment and Plan Plan: Impression and plan: 1. Acute thrombocytopenia: - Most likely secondary to acute viral infection possibility of ITP. - patient has been appropriately started on steroids.IV Solu-Medrol. - Rule out other causes check fibrinogen, d-dimer to rule out DIC, check haptoglobin and LDH for hemolysis. Check B12 folate levels. - peripheral smear for schistocytes. - Check EBV, CMV, Parvovirus, HIV and Hepatitis. - in view of presumed to ITP, plan for Immunoglobulin Therapy. - monitor platelets daily. 2. Respiratory distress, pneumonia with bilateral pleural effusions: - will likely need thoracentesis, pulmonary on consult. - Continue antibiotics. 3. Sinus tachycardia. 4. Leukocytosis likely secondary to infection. Thank you for allowing me to participate in the care of your patient. Neisha Luque MD Web Services Architect, [facility] [id number], [address] [place] [address] Office: [phone] Time with Patient: Greater than 30
[2019-10-19 19:56] LABS: African American GFR (CKD) >90 (>60 ml/min/1.73 sqM); Non-African American GFR(CKD) >90 (>60 ml/min/1.73 sqM)
[2019-10-19 19:57] LABS: Potassium 4.1 mmol/L (3.5-5.1)
[2019-10-19 20:00] LABS: Basophils % (A) 0 %; Eosinophils % (A) 0 %; HCT 43.2 % (39.0-53.0); HGB 14.8 gm/dL (13.0-17.5); Lymphocytes # (A) 1.1 k/uL (1.0-4.8); Lymphocytes % (A) 7 %; MCH 28.8 pg (25.0-35.0); MCHC 34.3 g/dL (31.0-37.0); MCV 84.1 fL (80.0-100.0); Mean Platelet Volume 9.9; Monocytes # (A) 0.6 k/uL (0-1.0); Monocytes % (A) 4 %; Neutrophils # (A) 14.3 k/uL (1.3-7.7); Neutrophils % (A) 88 %; RBC 5.14 m/uL (4.30-5.90); RDW 12.8 % (11.5-15.5); WBC 16.2 k/uL (3.8-10.6)
[2019-10-19 20:01] LABS: D-Dimer 2.21 mg/L FEU (<0.60); Platelet Count 63 k/uL (150-450)
[2019-10-19] MEDS: ALBUTEROL NEBULIZED 2.5 MG/3 ML INHALATION SCH (20:17)
[2019-10-19 21:41] LABS: Glucose,Whole Blood 162 mg/dL (75-99)
--- NOTE | 2019-10-19 23:41 | PN ---
PROGRESS NOTE DATE OF SERVICE: 10/19/2019 This 24-year-old gentleman admitted with bilateral pneumonia also thrombocytopenia. The viral pneumonia versus bacterial pneumonia is suspected at this time. The most recent chest x-ray which was personally reviewed by me showed significant pleural effusion, bilateral, left more than the right. Dr. Soriano is planning a possible thoracocentesis once the patient's platelets are stabilized. Hematology/Oncology is following the patient closely. PAST MEDICAL HISTORY: Reviewed. REVIEW OF SYSTEMS: CARDIOVASCULAR SYSTEM: No angina. RESPIRATORY: As mentioned earlier. GI: As mentioned earlier. : No dysuria. NERVOUS SYSTEM: No weakness. MEDICATIONS: 1. Tylenol 650 q.6h p.r.n. 2. [place] 5 mg p.r.n. 3. Zithromax 500 mg daily. 4. Rocephin 1 g daily. 5. Solu-Medrol 60 IV q.6h. 6. Narcan. 7. Zofran. 8. Protonix. PHYSICAL EXAM: Patient is alert, oriented x3. Pulse is 100, blood pressure 142/70, respirations 17, temperature 97.9, pulse ox 93 percent on 2 L. HEENT: Conjunctivae normal. Oral mucosa moist. NECK: No jugular venous distention. No lymph node enlargement. CARDIOVASCULAR: S1, S2. RESPIRATORY: Diminished breath sounds at the bases. Bilateral scattered rhonchi and crackles, left more than right. Breath sounds also diminished on the left side. ABDOMEN: Soft, nontender. LEGS: No swelling. NERVOUS SYSTEM: No focal deficits. LABS: WBC 10.8, platelets 29. C-reactive protein 54.3. EBV, HIV negative. ASSESSMENT: 1. Acute bilateral pneumonia, possible left pleural effusion, left pleurisy, possibly viral, possibly community-acquired. 2. Increased WBC. 3. Left pleural effusion. 4. Severe thrombocytopenia, possibly secondary to viral etiology or ITP. 5. Increased random blood sugar. RECOMMENDATION AND DISCUSSION: In this 24-year-old gentleman who presented with multiple complex medical issues, we will monitor the patient closely. Continue the antibiotics. Continue symptomatic treatment. Continue steroids. Monitor blood sugars closely. Otherwise, I would also recommend a short course of bronchodilators. Otherwise, Dr. Soriano is following the patient closely. Guarded prognosis. Viral cultures are awaited at this time. Possible thoracocentesis per Dr. Soriano. Further recommendations to follow. MMODL / IJN: [id number] /
[2019-10-20] MEDS: HYDROcodone/APAP 5-325MG 1 EACH TAB PO PRN (00:43)
[2019-10-20] MEDS: ALPRAZolam 0.25 MG TAB PO PRN (00:43)
[2019-10-20] MEDS: methylPREDNISolone SOD SUCCI 125 MG/2 ML VIAL IV SCH ×3 (05:49→17:41)
[2019-10-20 07:01] LABS: Basophils % (A) 0 %; Eosinophils % (A) 0 %; HCT 39.3 % (39.0-53.0); HGB 12.9 gm/dL (13.0-17.5); Lymphocytes # (A) 1.5 k/uL (1.0-4.8); Lymphocytes % (A) 8 %; MCH 28.1 pg (25.0-35.0); MCV 85.2 fL (80.0-100.0); Mean Platelet Volume 8.9; Monocytes # (A) 0.8 k/uL (0-1.0); Monocytes % (A) 5 %; Neutrophils # (A) 15.5 k/uL (1.3-7.7); Neutrophils % (A) 86 %; RBC 4.61 m/uL (4.30-5.90); RDW 12.9 % (11.5-15.5)
[2019-10-20 07:08] LABS: Glucose,Whole Blood 133 mg/dL (75-99)
[2019-10-20 07:19] LABS: African American GFR (CKD) >90 (>60 ml/min/1.73 sqM); Anion Gap 5 mmol/L; Blood Urea Nitrogen 13 mg/dL (9-20); Calcium 8.2 mg/dL (8.4-10.2); Carbon Dioxide 26 mmol/L (22-30); Chloride 110 mmol/L (98-107); Glucose 138 mg/dL (74-99); Non-African American GFR(CKD) >90 (>60 ml/min/1.73 sqM); Platelet Count 90 k/uL (150-450); Potassium 4.3 mmol/L (3.5-5.1); Sodium 141 mmol/L (137-145)
[2019-10-20] MEDS: INSULIN ASPART (NovoLOG) 100 UNIT/ML VIAL SQ SCH ×4 (07:32→21:21)
--- NOTE | 2019-10-20 08:02 | XR ---
EXAMINATION TYPE: XR chest 2V DATE OF EXAM: 10/20/2019 COMPARISON: Chest x-ray from yesterday. CT chest from 2 days ago. HISTORY: Pleural effusion. Pneumonia. TECHNIQUE: Frontal and lateral views of the chest are obtained. FINDINGS: There is persistent left basilar opacity. Persistent small bilateral pleural effusions see n best on lateral view. Upper lungs remain clear without pneumothorax. The cardiac silhouette size is stable and within normal limits. The osseous structures are intact. IMPRESSION: Small bilateral pleural effusions remain present. Persistent more focal left lateral bas ilar acute infiltrate and/or atelectasis.
[2019-10-20] MEDS: PANTOPRAZOLE 40 MG TABLET PO SCH (08:05)
[2019-10-20] MEDS: ALBUTEROL NEBULIZED 2.5 MG/3 ML INHALATION SCH ×3 (08:31→19:55)
[2019-10-20 11:35] LABS: Glucose,Whole Blood 121 mg/dL (75-99)
--- NOTE | 2019-10-20 12:33 | US ---
EXAMINATION TYPE: US chest DATE OF EXAM: 10/20/2019 COMPARISON: Chest x-ray earlier today. CT chest 2 days ago. CLINICAL HISTORY: Markings for thoracentesis by pulmonary staff. Pleural effusion TECHNIQUE: Targeted ultrasound of the posterior lower bilateral hemithoraces EXAM MEASUREMENTS: Right Pleural Effusion pocket size: 9.4 cm Right skin surface to fluid distance: 3.7 cm Left Pleural Effusion pocket size: 8.8 cm Left skin surface to fluid distance: 3.7 cm Right side marked for possible thoracentesis outside the dept. Left side marked for possible thoracentesis outside the dept. Pulmonologists are able to review the images in the patient?s EMR. Confirmation of persistent small to moderate-sized bilateral pleural effusions seen better on CT than x-ray IMPRESSIONS: As above.
[2019-10-20] MEDS: AZITHROMYCIN 500 MG in SODIUM CHLORIDE 0.9% 250 ML IVPB SCH (13:55)
[2019-10-20] MEDS: AZITHROMYCIN 500 MG TAB PO SCH (13:59)
[2019-10-20 14:18] LABS: Hepatitis A Antibody IgM Non-Reactive (Non-Reactive); Hepatitis B Core IgM Non-Reactive (Non-Reactive); Hepatitis B Surface Antigen Non-Reactive (Non-Reactive); Hepatitis C IgG Antibody Non-Reactive (Non-Reactive)
--- NOTE | 2019-10-20 15:06 | ECHOF ---
Referral Reason:pleurisy, pericardiits?? MEASUREMENTS -------- HEIGHT: 182.9 cm WEIGHT: 93.0 kg BP: RVIDd: 3.8 cm (< 3.3) IVSd: 1.0 cm (0.6 - 1.1) LVIDd: 5.0 cm (3.9 - 5.3) LVPWd: 1.1 cm (0.6 - 1.1) IVSs: 1.3 cm LVIDs: 3.2 cm LVPWs: 1.6 cm LA Diam: 3.6 cm (2.7 - 3.8) Ao Diam: 3.3 cm (2.0 - 3.7) AV Cusp: 2.3 cm (1.5 - 2.6) LA Diam: 3.9 cm (2.7 - 3.8) MV EXCURSION: 24.642 mm (> 18.000) MV EF SLOPE: 111 mm/s (70 - 150) EPSS: 0.3 cm MV E Nick: 0.89 m/s MV DecT: 203 ms MV A Nick: 0.54 m/s MV E/A Ratio: 1.65 FINDINGS -------- Sinus rhythm. This was a technically good study. LV size, wall thickness and systolic function are normal, with an EF greater than 55%. The left leobardo tricular size is normal. The right ventricle is normal in size. The left atrial size is normal. The right atrial size is normal. The aortic valve is trileaflet, and appears structurally normal. No aortic stenosis or regurgitation. Mild mitral regurgitation is present. Mild tricuspid regurgitation present. There is no evidence of pulmonary hypertension. The right v entricular systolic pressure, as measured by Doppler, is {RVSP}. There is no pulmonic regurgitation present. There is a small, generalized pericardial effusion present. CONCLUSIONS -------- 1. Sinus rhythm. 2. This was a technically good study. 3. LV size, wall thickness and systolic function are normal, with an EF greater than 55%. 4. The left ventricular size is normal. 5. The right ventricle is normal in size. 6. The left atrial size is normal. 7. The right atrial size is normal. 8. The aortic valve is trileaflet, and appears structurally normal. No aortic stenosis or regurgitati on. 9. Mild mitral regurgitation is present. 10. Mild tricuspid regurgitation present. 11. There is no evidence of pulmonary hypertension. 12. . 13. There is no pulmonic regurgitation present. 14. There is a small, generalized pericardial effusion present. INTEGRATED CIRCUIT FABRICATOR: Wandy Castro RDCS
--- NOTE | 2019-10-20 15:09 | P.PN ---
Subjective Progress Note Date: 10/20/19 This is a 24-year-old pleasant white male patient, who came into the hospital because of worsening shortness of breath. His symptoms started approximately 7- 10 days ago. He initially started off with symptoms of URI. Progressively got worse. He went and saw the urgent care on and he was given a course of Z-Lalit and promethazine. His condition progressively got worse and he became more short of breath as he was having some painful breathing and he was unable to fully expand his lungs. Minimal sore throat. [place] feverish and there was no documented temperature. He had some runny nose. He had some limited congested cough. He came into the emergency department and he was found to have a white cell count of 13.7, platelet count of 18,000, neutrophil of 54,000 with a 40% lymphocytes, his PT PTT were within normal limits, his influenza screen was negative. He had a chest x-ray that showed bilateral lower lobe pulmonary infiltrates and effusions. CAT scan of the chest showed moderate-sized bilateral pleural effusions and adjacent infiltrates/atelectasis. Small pericardial effusion was also seen Clinically, the patient is a healthy male patient. No recent travel. No expos ure to sick contacts. No history of any EBV infection and he was not considered to be promiscuous or at the high risk of having been exposed to HIV. No jaundice. No previous viral hepatitis. 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 In the emergency department, the patient was given a dose of vancomycin and Zosyn. He was admitted to the floor accordingly. No bleeding complications. No epistaxis. No headaches. No neck stiffness. No skin rashes. No 72 rheumatologic disease or arthritis. No smoking. No substance abuse. It is also worthwhile mentioning that the patient got a flu shot approximately 3 weeks ago for a local pharmacy and since then his condition is been progressively getting worse. He developed the symptoms of URI and subsequent shortness of breath since he got the flu shot. His evaluation of 10/19/2019 the patient is feeling better. He feels less short of breath. No fever. No chills. He is receiving IV fluids at the rate of 50 mL an hour. He is tolerating his diet. No nausea. No vomiting. No chest pain. EBV titers came back negative for acute EBV infection. HIV screen also came back negative. The patient is on IV Solu-Medrol. His platelet count is improving it's up to 29,000 on today's evaluation. He is still awaiting a hematology oncology evaluation. On 10/20/2019 and seeing the patient for a follow-up. Clinically improved. Less short of breath. No fever. No chills. Platelet counts are improving and the patient started on IV Solu-Medrol 60 mg every 6 hours. Repeat chest x-ray was done and the patient showed bilateral pleural effusion. Based on that, ultrasound of the chest was done and the patient was found to have a 9.4 cm pocket on the right upper lip 0.8 cm pocket on the left marked for thorace ntesis. Clinically however, the patient's pulse is up to 92% on room air and is not having any respiratory distress. He is afebrile for now. Breathing comfortably. Objective - Vital Signs Vital signs: Vital Signs Temp 97.7 F 10/20/19 12:11 Pulse 90 10/20/19 12:11 Resp 17 10/20/19 12:11 BP 116/60 10/20/19 12:11 Pulse Ox 92 L 10/20/19 12:57 Intake & Output 10/19/19 10/20/19 10/20/19 18:59 06:59 18:59 Intake Total 1220 1560 240 Output Total 800 Balance 420 1560 240 Intake: Intake, IV Titration 500 600 Amount Sodium Chloride 0.9% 1, 400 600 000 ml @ 50 mls/hr IV . Q20H [facility] Rx#:[id number] cefTRIAXone 1 gm In 100 Sodium Chloride 0.9% 50 ml @ 100 mls/hr IVPB Q24HR [facility] Rx#:[id number] Oral 720 960 240 Output: Urine 800 Other: Voiding Method Toilet Toilet Toilet # Voids 3 1 2 # Bowel Movements 1 - Exam The patient appeared well nourished and normally developed. Vital signs as documented. Currently the patient is on 2 L of oxygen by nasal cannula. The patient was transitioned to room air oxygen maintaining her pulse ox of 92%. He is tachycardic and his sinus tachycardia. Head exam is unremarkable. No scleral icterus or corneal arcus noted. Neck is without jugular venous distension, thyromegaly, or carotid bruits. Carotid upstrokes are brisk bilaterally. Lungs are diminished breath sounds bilaterally and there is dullness to percussion the mid and lower lung ann bilaterally.. Cardiac exam reveals the PMI to be normally sized and situated. Rhythm is regular. First and second heart sounds normal. No murmurs, rubs or gallops. Abdominal exam reveals normal bowel sounds, no masses, no organomegaly and no aortic enlargement. Extremities are nonedematous and both femoral and pedal pulses are normal.Examination of the skin revealed no evidence of significant rashes, suspicious appearing nevi or other concerning lesions. Neurologically awake and alert and is no focal neurological deficits. - Labs CBC & Chem 7: 10/20/19 06:33 10/20/19 06:33 Labs: Abnormal Lab Results - Last 24 Hours (Table) 10/19/19 10/19/19 10/19/19 Range/Units 19:14 19:14 19:14 WBC 16.2 H (3.8-10.6) k/uL Hgb (13.0-17.5) gm/dL Plt Count 63 L D (150-450) k/uL Neutrophils # 14.3 H (1.3-7.7) k/uL Haptoglobin (31.2-198.0) mg/dL D-Dimer 2.21 H (<0.60) mg/L FEU Chloride 108 H (98-107) mmol/L Glucose (74-99) mg/dL POC Glucose (mg/dL) (75-99) mg/dL Calcium (8.4-10.2) mg/dL 10/19/19 10/19/19 10/20/19 Range/Units 19:14 21:39 06:33 WBC 18.0 H (3.8-10.6) k/uL Hgb 12.9 L (13.0-17.5) gm/dL Plt Count 90 L (150-450) k/uL Neutrophils # 15.5 H (1.3-7.7) k/uL Haptoglobin 305.0 H (31.2-198.0) mg/dL D-Dimer (<0.60) mg/L FEU Chloride (98-107) mmol/L Glucose (74-99) mg/dL POC Glucose (mg/dL) 162 H (75-99) mg/dL Calcium (8.4-10.2) mg/dL 10/20/19 10/20/19 10/20/19 Range/Units 06:33 07:03 11:33 WBC (3.8-10.6) k/uL Hgb (13.0-17.5) gm/dL Plt Count (150-450) k/uL Neutrophils # (1.3-7.7) k/uL Haptoglobin (31.2-198.0) mg/dL D-Dimer (<0.60) mg/L FEU Chloride 110 H (98-107) mmol/L Glucose 138 H (74-99) mg/dL POC Glucose (mg/dL) 133 H 121 H (75-99) mg/dL Calcium 8.2 L (8.4-10.2) mg/dL Microbiology - Last 24 Hours (Table) 10/18/19 14:43 Blood Culture - Preliminary Blood No Growth after 24 hours Assessment and Plan Plan: 1 severe acute shortness of breath following a flu shot approximately 3 weeks ago followed by symptoms of URI and currently patient is presenting to the hospital because of moderate-sized bilateral pleural effusion, hypoxic respiratory failure, worsening shortness of breath and new onset thrombocytopenia. Consider reaction to flu shot as flu shots have been reported to cause immune related reactions including thrombocytopenia. Consider viral pleuritis with secondary thrombocytopenia. I favor the possibility of an acute viral infection knowing the patient has significant lymphocytosis in the order of 40% and his CBC. Doubt bacterial infection at this point in time. Doubt malignancy. Doubt an acute rheumatologic presentation. 2 acute hypoxic respiratory failure secondary to above 3 acute thrombocytopenia, consider viral-induced ITP versus vaccination-induced, improving 4 sinus tachycardia Plan The patient is improving. Platelet counts are up to 90,000 and currently is not having any significant shortness of breath. Pulse ox is 92% on room air. Ultrasound the chest showed bilateral pleural effusions. The patient denies centimeters pocket on the right and 8 cm pocket on the left and this will need a therapeutic paracentesis at the later stage for symptomatic relief. Continue the bronchodilators. Do not see any role for antibiotics as this is most likely of viral episodes. We'll continue to follow.
[2019-10-20 16:55] LABS: Glucose,Whole Blood 144 mg/dL (75-99)
--- NOTE | 2019-10-20 18:12 | PN ---
PROGRESS NOTE DATE OF SERVICE: 10/20/2019 This 24-year-old gentleman who was admitted with acute bilateral pneumonia is on IV antibiotics. The patient also had thrombocytopenia. The patient was thought to have community-acquired pneumonia; thrombocytopenia could be reactive in nature. The possibility of ITP is also being noted. A 2D echo with Doppler was also done which showed ejection fraction more than 55% and a small generalized pericardial effusion was noted. No chest pain. No palpitations. Patient also had a chest ultrasound which showed persistent small- to moderate-sized bilateral pleural effusion. Dr. Soriano is following the patient closely. Past medical history reviewed. REVIEW OF SYSTEMS: CARDIOVASCULAR SYSTEM: No angina, palpitations. RESPIRATORY SYSTEM: As mentioned earlier. GI: As mentioned earlier. : No dysuria or retention. NERVOUS SYSTEM: No numbness, weakness. CURRENT MEDICATIONS: Reviewed. They include: 1. Tylenol p.r.n. 2. Alpine 5 mg q.6 p.r.n. 3. Ventolin 2.5 t.i.d. p.r.n. 4. Xanax 0.25 t.i.d. 5. Zithromax 500 mg p.o. daily. 6. Omnicef 300 mg p.o. b.i.d. 7. NovoLog scale. 8. Solu-Medrol 60 IV q.6. 9. Narcan. 10.Zofran. 11.Protonix p.r.n. PHYSICAL EXAMINATION: Patient is alert, oriented x3. Pulse is 90, blood pressure 116/60, respirations 17, temperature 97.7, pulse ox 96% on 2 L. HEENT: Conjunctivae normal. Oral mucosa moist. NECK: No jugular venous distention. No carotid bruit. No lymph node enlargement. CARDIOVASCULAR SYSTEM: S1, S2 muffled. RESPIRATORY SYSTEM: Breath sounds diminished at the bases. A few scattered rhonchi and crackles. ABDOMEN: Soft, non-tender. No mass palpable. LEGS: No edema. No swelling. NERVOUS SYSTEM: Higher functions as mentioned earlier. Moves all 4 limbs. No focal motor or sensory deficit. LYMPHATICS: No lymph node palpable in neck, axillae or groin. SKIN: No ulcer, rash, bleeding. JOINTS: No active bleeding. LABS: WBC 18, hemoglobin 12.9, platelets 90. Glucose 133. Potassium 8.2. ASSESSMENT: 1. Acute bilateral pneumonia with bilateral pleural effusion, left more than right, with left pleurisy, possibly community-acquired, possibly viral. 2. Increased white count. 3. Mild to moderate bilateral pleural effusion. 4. Severe thrombocytopenia, possibly secondary to viral etiology, infectious, or idiopathic thrombocytopenic purpura. 5. Increased random blood sugar. RECOMMENDATIONS AND DISCUSSION: In this 24-year-old gentleman who presented with multiple complex medical issues, we will monitor the patient closely, continue the current medications, continue symptomatic treatment. We will continue with high-dose IV steroids. Continue the bronchodilators, empiric antibiotics. We will continue to monitor. Guarded prognosis because of multiple complex medical issues. Continue the bronchodilators. Further recommendations to follow. MMODL / IJN: [id number] /
[2019-10-20 19:34] LABS: Glucose,Whole Blood 206 mg/dL (75-99)
--- NOTE | 2019-10-20 21:05 | P.PN ---
Subjective Progress Note Date: 10/20/19 Principal diagnosis: thrombocytopenia This is a very pleasant 24-year-old gentleman with no significant past medical history other than low IQ, who was not feeling well over the past several weeks developed cough and sputum production and 17 and shortness of breath or pain on the left side which was increasing subsequently came to the hospital for further evaluation had a chest x-ray done that showed bilateral lesions and significant thrombocytopenia. The patient had a CAT scan of chest which showed large bilateral pleural effusion with pulmonary opacities. Patient was tachycardic as well .The patient has been evaluated by pulmonary, and antibiotics have been started. However patient is getting more short of breath. On review of labs white count of 13,000 elevated, platelet count has dropped to 18,000 with neutrophil count Elevated. As such no recent history of infections. 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 patient is feeling better no evidence of bleeding, Objective - Vital Signs Vital signs: Vital Signs Temp 97.7 F 10/20/19 12:11 Pulse 88 10/20/19 20:05 Resp 17 10/20/19 16:25 BP 116/60 10/20/19 12:11 Pulse Ox 94 L 10/20/19 19:55 Intake & Output 10/20/19 10/20/19 10/21/19 06:59 18:59 06:59 Intake Total 1560 240 Output Total 400 Balance 1560 -160 Intake: Intake, IV Titration 600 Amount Sodium Chloride 0.9% 1, 600 000 ml @ 50 mls/hr IV . Q20H [facility] Rx#:[id number] Oral 960 240 Output: Urine 400 Other: Voiding Method Toilet Toilet # Voids 1 3 - Exam The patient appeared well nourished and normally developed. Vital signs as documented. Head exam is unremarkable. No scleral icterus or corneal arcus noted. Neck is without jugular venous distension, thyromegaly, or carotid bruits. Carotid upstrokes are brisk bilaterally. Lungs are clear to auscultation and percussion. Cardiac exam reveals the PMI to be normally sized and situated. Rhythm is regular. First and second heart sounds normal. No murmurs, rubs or gallops. Abdominal exam reveals normal bowel sounds, no masses, no organomegaly and no aortic enlargement. Extremities are nonedematous and both femoral and pedal pulses are normal. - Labs CBC & Chem 7: 10/20/19 06:33 10/20/19 06:33 Labs: Abnormal Lab Results - Last 24 Hours (Table) 10/19/19 10/19/19 10/19/19 Range/Units 19:14 19:14 21:39 WBC (3.8-10.6) k/uL Hgb (13.0-17.5) gm/dL Plt Count (150-450) k/uL Neutrophils # (1.3-7.7) k/uL Pathologist Review See comment A Haptoglobin 305.0 H (31.2-198.0) mg/dL Chloride (98-107) mmol/L Glucose (74-99) mg/dL POC Glucose (mg/dL) 162 H (75-99) mg/dL Calcium (8.4-10.2) mg/dL 10/20/19 10/20/19 10/20/19 Range/Units 06:33 06:33 07:03 WBC 18.0 H (3.8-10.6) k/uL Hgb 12.9 L (13.0-17.5) gm/dL Plt Count 90 L (150-450) k/uL Neutrophils # 15.5 H (1.3-7.7) k/uL Pathologist Review Haptoglobin (31.2-198.0) mg/dL Chloride 110 H (98-107) mmol/L Glucose 138 H (74-99) mg/dL POC Glucose (mg/dL) 133 H (75-99) mg/dL Calcium 8.2 L (8.4-10.2) mg/dL 10/20/19 10/20/19 10/20/19 Range/Units 11:33 16:49 19:34 WBC (3.8-10.6) k/uL Hgb (13.0-17.5) gm/dL Plt Count (150-450) k/uL Neutrophils # (1.3-7.7) k/uL Pathologist Review Haptoglobin (31.2-198.0) mg/dL Chloride (98-107) mmol/L Glucose (74-99) mg/dL POC Glucose (mg/dL) 121 H 144 H 206 H (75-99) mg/dL Calcium (8.4-10.2) mg/dL Microbiology - Last 24 Hours (Table) 10/18/19 14:43 Blood Culture - Preliminary Blood No Growth after 48 hours Assessment and Plan Plan: Impression and plan: 1. 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 - patient has been appropriately started on steroids.IV Solu-Medrol. - Rule out other causes check fibrinogen, d-dimer to rule out DIC, check haptoglobin and LDH for hemolysis. Check B12 folate levels. - peripheral smear for schistocytes. - Check EBV, CMV, Parvovirus, HIV and Hepatitis. - Current white count elevated at 18, hemoglobin 12.9, platelets improving to 90,000, will reserve immunoglobulins in case there is a relapse. - Lymphocytosis suggests a viral infection, elevated haptoglobin globulin secondary to acute phase reaction, neutrophilia present. Smear does not show any evidence of leukemia or lymphoma. - PT/INR APTT normal, nnormal LDH,fibrinogen normal d-dimer elevated no evidence of DIC - monitor platelets daily. - Will suggest a slow taper of steroids over couple of weeks. 2. Respiratory distress, pneumonia with bilateral pleural effusions: - will likely need thoracentesis, pulmonary on consult. - Continue antibiotics. - cultures negative. 3. Sinus tachycardia. 4. Leukocytosis likely secondary to infection. Thank you for allowing me to participate in the care of your patient. Neisha Luque MD Publications Production Supervisor, [facility] [id number], [address] [place] [address] Office: [phone] Time with Patient: Greater than 30
[2019-10-21] MEDS: methylPREDNISolone SOD SUCCI 125 MG/2 ML VIAL IV SCH ×3 (00:27→12:22)
[2019-10-21 07:01] LABS: Glucose,Whole Blood 145 mg/dL (75-99)
[2019-10-21] MEDS: INSULIN ASPART (NovoLOG) 100 UNIT/ML VIAL SQ SCH ×4 (07:59→21:32)
[2019-10-21] MEDS: PANTOPRAZOLE 40 MG TABLET PO SCH (08:00)
[2019-10-21] MEDS: CEFDINIR 300 MG CAP PO SCH ×2 (08:01→21:32)
[2019-10-21] MEDS: ALBUTEROL NEBULIZED 2.5 MG/3 ML INHALATION SCH ×3 (09:25→20:19)
[2019-10-21 11:40] LABS: Glucose,Whole Blood 199 mg/dL (75-99)
[2019-10-21] MEDS: AZITHROMYCIN 500 MG TAB PO SCH (12:22)
--- NOTE | 2019-10-21 13:36 | P.PN ---
Subjective Progress Note Date: 10/21/19 This is a 24-year-old pleasant white male patient, who came into the hospital because of worsening shortness of breath. His symptoms started approximately 7- 10 days ago. He initially started off with symptoms of URI. Progressively got worse. He went and saw the urgent care on and he was given a course of Z-Lalit and promethazine. His condition progressively got worse and he became more short of breath as he was having some painful breathing and he was unable to fully expand his lungs. Minimal sore throat. [place] feverish and there was no documented temperature. He had some runny nose. He had some limited congested cough. He came into the emergency department and he was found to have a white cell count of 13.7, platelet count of 18,000, neutrophil of 54,000 with a 40% lymphocytes, his PT PTT were within normal limits, his influenza screen was negative. He had a chest x-ray that showed bilateral lower lobe pulmonary infiltrates and effusions. CAT scan of the chest showed moderate-sized bilateral pleural effusions and adjacent infiltrates/atelectasis. Small pericardial effusion was also seen Clinically, the patient is a healthy male patient. No recent travel. No expos ure to sick contacts. No history of any EBV infection and he was not considered to be promiscuous or at the high risk of having been exposed to HIV. No jaundice. No previous viral hepatitis. 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 In the emergency department, the patient was given a dose of vancomycin and Zosyn. He was admitted to the floor accordingly. No bleeding complications. No epistaxis. No headaches. No neck stiffness. No skin rashes. No 70 rheumatologic disease or arthritis. No smoking. No substance abuse. It is also worthwhile mentioning that the patient got a flu shot approximately 3 weeks ago for a local pharmacy and since then his condition is been progressively getting worse. He developed the symptoms of URI and subsequent shortness of breath since he got the flu shot. His evaluation of 10/19/2019 the patient is feeling better. He feels less short of breath. No fever. No chills. He is receiving IV fluids at the rate of 50 mL an hour. He is tolerating his diet. No nausea. No vomiting. No chest pain. EBV titers came back negative for acute EBV infection. HIV screen also came back negative. The patient is on IV Solu-Medrol. His platelet count is improving it's up to 29,000 on today's evaluation. He is still awaiting a hematology oncology evaluation. On 10/20/2019 and seeing the patient for a follow-up. Clinically improved. Less short of breath. No fever. No chills. Platelet counts are improving and the patient started on IV Solu-Medrol 60 mg every 6 hours. Repeat chest x-ray was done and the patient showed bilateral pleural effusion. Based on that, ultrasound of the chest was done and the patient was found to have a 9.4 cm pocket on the right upper lip 0.8 cm pocket on the left marked for thorace ntesis. Clinically however, the patient's pulse is up to 92% on room air and is not having any respiratory distress. He is afebrile for now. Breathing comfortably. 10/21/2019 I'm seeing the patient for a follow-up. No major complaints. His cough and upon taking a deep breath. Ultrasound the chest was done and showed bilateral pleural effusion and the patient would benefit from thoracentesis for symptomatic relief. He remains on IV Solu-Medrol. The platelet count from yesterday was up to 90,000. No fever. No chills. No night sweats no other new complaints otherwise for now. Objective - Vital Signs Vital signs: Vital Signs Temp 97.4 F L 10/21/19 12:56 Pulse 68 10/21/19 12:56 Resp 20 10/21/19 12:56 BP 146/76 10/21/19 12:56 Pulse Ox 93 L 10/21/19 12:56 Intake & Output 10/20/19 10/21/19 10/21/19 18:59 06:59 18:59 Intake Total 240 Output Total 400 Balance -160 Intake: Oral 240 Output: Urine 400 Other: Voiding Method Toilet Toilet # Voids 3 2 - Exam The patient appeared well nourished and normally developed. Vital signs as documented. Currently the patient is on room air oxygen The patient was tr ansitioned to room air oxygen maintaining her pulse ox of 92%. He is tachycardic and his sinus tachycardia. Head exam is unremarkable. No scleral icterus or corneal arcus noted. Neck is without jugular venous distension, thyromegaly, or carotid bruits. Carotid upstrokes are brisk bilaterally. Lungs are diminished breath sounds bilaterally and there is dullness to percussion the mid and lower lung ann bilaterally.. Cardiac exam reveals the PMI to be normally sized and situated. Rhythm is regular. First and second heart sounds normal. No murmurs, rubs or gallops. Abdominal exam reveals normal bowel sounds, no masses, no organomegaly and no aortic enlargement. Extremities are nonedematous and both femoral and pedal pulses are normal.Examination of the skin revealed no evidence of significant rashes, suspicious appearing nevi or other concerning lesions. Neurologically awake and alert and is no focal neurological deficits. - Labs CBC & Chem 7: 10/20/19 06:33 10/20/19 06:33 Labs: Abnormal Lab Results - Last 24 Hours (Table) 10/19/19 10/20/19 10/20/19 Range/Units 19:14 16:49 19:34 Pathologist Review See comment A POC Glucose (mg/dL) 144 H 206 H (75-99) mg/dL 10/21/19 10/21/19 Range/Units 06:58 11:28 Pathologist Review POC Glucose (mg/dL) 145 H 199 H (75-99) mg/dL Microbiology - Last 24 Hours (Table) 10/18/19 14:43 Blood Culture - Preliminary Blood No Growth after 48 hours Assessment and Plan Plan: 1 severe acute shortness of breath following a flu shot approximately 3 weeks ag o followed by symptoms of URI and currently patient is presenting to the hospital because of moderate-sized bilateral pleural effusion, hypoxic respiratory failure, worsening shortness of breath and new onset thrombocytopenia. Consider reaction to flu shot as flu shots have been reported to cause immune related reactions including thrombocytopenia. Consider viral pleuritis with secondary thrombocytopenia. I favor the possibility of an acute viral infection knowing the patient has significant lymphocytosis in the order of 40% and his CBC. Doubt bacterial infection at this point in time. Doubt malignancy. Doubt an acute rheumatologic presentation. 2 acute hypoxic respiratory failure secondary to above 3 acute thrombocytopenia, consider viral-induced ITP versus vaccination-induced, improving 4 sinus tachycardia Plan The patient is improving. Platelet counts are up to 90,000 and currently is not having any significant shortness of breath. The patient has significant amount of pleural effusions bilaterally. Also some markings have been obtained and I'm going to do sequential thoracentesis starting with the right and then probably by tomorrow will do the left. Consent was signed. Procedure was explained. Continued IV Solu-Medrol with gradual taper. We'll continue to follow.
[2019-10-21 13:37] LABS: Basophils % (A) 0 %; Eosinophils % (A) 0 %; HCT 41.3 % (39.0-53.0); HGB 13.6 gm/dL (13.0-17.5); Lymphocytes % (A) 6 %; MCH 28.1 pg (25.0-35.0); MCHC 32.9 g/dL (31.0-37.0); MCV 85.2 fL (80.0-100.0); Mean Platelet Volume 7.6; Monocytes # (A) 0.6 k/uL (0-1.0); Monocytes % (A) 4 %; Neutrophils # (A) 14.7 k/uL (1.3-7.7); Neutrophils % (A) 89 %; RBC 4.85 m/uL (4.30-5.90); RDW 13.1 % (11.5-15.5); WBC 16.5 k/uL (3.8-10.6)
[2019-10-21 13:43] LABS: Platelet Count 184 k/uL (150-450)
--- NOTE | 2019-10-21 14:39 | XR ---
EXAMINATION TYPE: XR chest 1V portable DATE OF EXAM: 10/21/2019 CLINICAL HISTORY: Difficulty breathing progress study. TECHNIQUE: Single AP portable upright view of the chest is obtained. COMPARISON: Chest x-ray from one day earlier FINDINGS: Stable left greater than right bibasilar opacities. Upper lungs remain clear without pneum othorax. Cardiac silhouette size stable and within normal limits. IMPRESSION: Persistent left greater than right bibasilar acute infiltrate and atelectasis and left gr eater than right small pleural effusions. No significant change from prior.
[2019-10-21 15:42] LABS: Appearance,BF Clear; Color,BF Yellow; Nucleated Cells, Body Fluid 90 /uL; RBC, Body Fluid 370 /uL
[2019-10-21 15:49] LABS: Mononuclear WBC,Body Fluid 23 %; Polynuclear WBC,Body Fluid 76 %; Total Cells Counted,Body Fluid 100
[2019-10-21 17:07] LABS: Glucose,Whole Blood 157 mg/dL (75-99)
[2019-10-21] MEDS: HYDROcodone/APAP 5-325MG 1 EACH TAB PO PRN (17:14)
--- NOTE | 2019-10-21 18:40 | P.PN ---
Subjective Progress Note Date: 10/21/19 Principal diagnosis: thrombocytopenia This is a very pleasant 24-year-old gentleman with no significant past medical history other than low IQ, who was not feeling well over the past several weeks developed cough and sputum production and 17 and shortness of breath or pain on the left side which was increasing subsequently came to the hospital for further evaluation had a chest x-ray done that showed bilateral lesions and significant thrombocytopenia. The patient had a CAT scan of chest which showed large bilateral pleural effusion with pulmonary opacities. Patient was tachycardic as well .The patient has been evaluated by pulmonary, and antibiotics have been started. However patient is getting more short of breath. On review of labs white count of 13,000 elevated, platelet count has dropped to 18,000 with neutrophil count Elevated. As such no recent history of infections. 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 patient is feeling better no evidence of bleeding, Objective - Vital Signs Vital signs: Vital Signs Temp 97.4 F L 10/21/19 12:56 Pulse 68 10/21/19 12:56 Resp 20 10/21/19 12:56 BP 146/76 10/21/19 12:56 Pulse Ox 93 L 10/21/19 12:56 Intake & Output 10/20/19 10/21/19 10/21/19 18:59 06:59 18:59 Intake Total 240 Output Total 400 Balance -160 Intake: Oral 240 Output: Urine 400 Other: Voiding Method Toilet Toilet # Voids 3 2 2 - Exam The patient appeared well nourished and normally developed. Vital signs as documented. Head exam is unremarkable. No scleral icterus or corneal arcus noted. Neck is without jugular venous distension, thyromegaly, or carotid bru its. Carotid upstrokes are brisk bilaterally. Lungs are clear to auscultation and percussion. Cardiac exam reveals the PMI to be normally sized and situated. Rhythm is regular. First and second heart sounds normal. No murmurs, rubs or gallops. Abdominal exam reveals normal bowel sounds, no masses, no organomegaly and no aortic enlargement. Extremities are nonedematous and both femoral and pedal pulses are normal. - Labs CBC & Chem 7: 10/21/19 13:18 10/20/19 06:33 Labs: Abnormal Lab Results - Last 24 Hours (Table) 10/20/19 10/21/19 10/21/19 Range/Units 19:34 06:58 11:28 WBC (3.8-10.6) k/uL Neutrophils # (1.3-7.7) k/uL POC Glucose (mg/dL) 206 H 145 H 199 H (75-99) mg/dL 10/21/19 10/21/19 Range/Units 13:18 16:55 WBC 16.5 H (3.8-10.6) k/uL Neutrophils # 14.7 H (1.3-7.7) k/uL POC Glucose (mg/dL) 157 H (75-99) mg/dL Microbiology - Last 24 Hours (Table) 10/18/19 14:43 Blood Culture - Preliminary Blood No Growth after 72 hours Assessment and Plan Plan: Impression and plan: 1. 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 - patient has been appropriately started on steroids.IV Solu-Medrol. - Rule out other causes check fibrinogen, d-dimer to rule out DIC, check haptoglobin and LDH for hemolysis. Check B12 folate levels. - peripheral smear for schistocytes. - Check EBV, CMV, Parvovirus, HIV and Hepatitis. - Current white count elevated at 18, hemoglobin 12.9, platelets improving to 90,000, will reserve immunoglobulins in case there is a relapse. - Lymphocytosis suggests a viral infection, elevated haptoglobin globulin secondary to acute phase reaction, neutrophilia present. Smear does not show any evidence of leukemia or lymphoma. - PT/INR APTT normal, nnormal LDH,fibrinogen normal d-dimer elevated no evidence of DIC - monitor platelets daily. - Will suggest a slow taper of steroids over 1-2 weeks. - platelets improved currently 184 now. 2. Respiratory distress, pneumonia with bilateral pleural effusions: - will likely need thoracentesis, pulmonary on consult. - Continue antibiotics. - cultures negative. 3. Sinus tachycardia. 4. Leukocytosis likely secondary to infection. Thank you for allowing me to participate in the care of your patient. Neisha Luque MD Polymerization Engineer, [facility] [id number], [address] [place] [address] Office: [phone]
--- NOTE | 2019-10-21 19:24 | PN ---
PROGRESS NOTE DATE OF SERVICE: 10/21/2019. This is a 24-year-old gentleman admitted with bilateral pneumonia and pleural effusion is being closely monitored. The patient also has thrombocytopenia, which is also improving at this time. The most recent chest x-ray did show significant pleural effusion on the left side. Dr. Soriano is following the patient closely. The platelets have improved to 184. The patient underwent thoracocentesis by Dr. Soriano today. No chest pain. No palpitations. No fever. EXAM: Alert and oriented x3. Pulse is 68, blood pressure 140/76, respiration 20, temperature 97.4, pulse ox 98% on room air. HEENT: Conjunctivae normal. Oral mucosa moist. NECK: No jugular venous distention. No lymph node enlargement. CARDIOVASCULAR: S1, S2. RESPIRATORY: Diminished breath sounds at the bases. A few scattered rhonchi and crackles. ( ) left side. ABDOMEN: Soft, nontender. LEGS: No swelling. NERVOUS SYSTEM: No focal deficits. LABS: WBC 16.2, hemoglobin 13.6, glucose 157. ASSESSMENT: 1. Acute bilateral pneumonia with bilateral pleural effusion, left more than the right with left pleurisy, possibly community-acquired pneumonia, possibly viral. 2. Increased WBC. 3. Status post thoracocentesis of the left pleural effusion. 4. Mild to moderate bilateral pleural effusion. 5. Severe thrombocytopenia possibly secondary to viral etiology or infectious idiopathic thrombocytic purpura, improved. 6. Increased random blood sugar. RECOMMENDATIONS AND DISCUSSION: I recommend to continue current management and continue symptomatic treatment. Continue with incentive spirometry. Continue the bronchodilators. Continue the antibiotics. See orders. Continue steroids. Guarded prognosis because of multiple complex medical issues. Further recommendations to follow. MMODL / IJN: [id number] /
[2019-10-21 19:44] LABS: Glucose,Whole Blood 135 mg/dL (75-99)
[2019-10-21 22:52] LABS: Glucose, BF Source Pleural Fluid; Glucose, Body Fluid 188 mg/dL; LDH, Body Fluid Source Pleural Fluid; Total Protein, Body Fluid 3000 mg/dL
--- NOTE | 2019-10-21 23:09 | PCN ---
PROCEDURE NOTE Indication Pleural effusion. A time-out was completed verifying correct patient, procedure, site, positioning , and implant (s) or special equipment if applicable. Ultrasound guidance was/was not used and appropriate fluid pocket was identified and marked. Patient was positioned, prepped and draped in usual sterile fashion. Lidocaine was used to anesthetize the area. Thoracentesis catheter was introduced into the pleural space and fluid was removed. Blood loss was none. A chest x-ray was ordered to evaluate for pneumothorax. Total Fluid Removed 800 mL Color of Fluid Turbid, dark yellowish pleural fluid. Fluid was sent for appropriate laboratory tests. Patient tolerated the procedure well and there were no complications. No complications. The patient tolerated the procedure well. MMODL / IJN: [id number] /
[2019-10-22 06:48] LABS: Glucose,Whole Blood 99 mg/dL (75-99)
[2019-10-22] MEDS: ALBUTEROL NEBULIZED 2.5 MG/3 ML INHALATION SCH ×2 (07:40→12:25)
[2019-10-22 07:42] LABS: Basophils % (A) 0 %; Eosinophils % (A) 0 %; HCT 43.2 % (39.0-53.0); HGB 14.1 gm/dL (13.0-17.5); Lymphocytes # (A) 2.1 k/uL (1.0-4.8); Lymphocytes % (A) 16 %; MCH 28.3 pg (25.0-35.0); MCHC 32.7 g/dL (31.0-37.0); MCV 86.7 fL (80.0-100.0); Mean Platelet Volume 7.6; Monocytes # (A) 0.8 k/uL (0-1.0); Monocytes % (A) 6 %; Neutrophils # (A) 10.6 k/uL (1.3-7.7); Neutrophils % (A) 78 %; Platelet Count 235 k/uL (150-450); RBC 4.99 m/uL (4.30-5.90); RDW 13.2 % (11.5-15.5); WBC 13.7 k/uL (3.8-10.6)
[2019-10-22] MEDS: INSULIN ASPART (NovoLOG) 100 UNIT/ML VIAL SQ SCH ×2 (07:51→12:58)
[2019-10-22] MEDS: CEFDINIR 300 MG CAP PO SCH (08:13)
[2019-10-22] MEDS: PANTOPRAZOLE 40 MG TABLET PO SCH (08:13)
[2019-10-22] MEDS ORDERED: predniSONE 20 MG TAB PO SCH (09:00)
--- NOTE | 2019-10-22 10:55 | XR ---
EXAMINATION TYPE: XR chest 1V portable DATE OF EXAM: 10/22/2019 COMPARISON: 10/21/2019 HISTORY: Chest pain TECHNIQUE: Single frontal view of the chest is obtained. FINDINGS: Left lower lobe infiltrate noted has improved but does persist. The cardiac silhouette size is within normal limits. The osseous structures are intact. IMPRESSION: 1. Left lower lobe infiltrate noted has improved but does persist.
--- NOTE | 2019-10-22 11:10 | P.PN ---
Subjective Progress Note Date: 10/22/19 This is a 24-year-old pleasant white male patient, who came into the hospital because of worsening shortness of breath. His symptoms started approximately 7- 10 days ago. He initially started off with symptoms of URI. Progressively got worse. He went and saw the urgent care on and he was given a course of Z-Lalit and promethazine. His condition progressively got worse and he became more short of breath as he was having some painful breathing and he was unable to fully expand his lungs. Minimal sore throat. Endeavor feverish and there was no documented temperature. He had some runny nose. He had some limited congested cough. He came into the emergency department and he was found to have a white cell count of 13.7, platelet count of 18,000, neutrophil of 54,000 with a 40% lymphocytes, his PT PTT were within normal limits, his influenza screen was negative. He had a chest x-ray that showed bilateral lower lobe pulmonary infiltrates and effusions. CAT scan of the chest showed moderate-sized bilateral pleural effusions and adjacent infiltrates/atelectasis. Small pericardial effusion was also seen Clinically, the patient is a healthy male patient. No recent travel. No expos ure to sick contacts. No history of any EBV infection and he was not considered to be promiscuous or at the high risk of having been exposed to HIV. No jaundice. No previous viral hepatitis. 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 In the emergency department, the patient was given a dose of vancomycin and Zosyn. He was admitted to the floor accordingly. No bleeding complications. No epistaxis. No headaches. No neck stiffness. No skin rashes. No 72 rheumatologic disease or arthritis. No smoking. No substance abuse. It is also worthwhile mentioning that the patient got a flu shot approximately 3 weeks ago for a local pharmacy and since then his condition is been progressively getting worse. He developed the symptoms of URI and subsequent shortness of breath since he got the flu shot. His evaluation of 10/19/2019 the patient is feeling better. He feels less short of breath. No fever. No chills. He is receiving IV fluids at the rate of 50 mL an hour. He is tolerating his diet. No nausea. No vomiting. No chest pain. EBV titers came back negative for acute EBV infection. HIV screen also came back negative. The patient is on IV Solu-Medrol. His platelet count is improving it's up to 29,000 on today's evaluation. He is still awaiting a hematology oncology evaluation. On 10/20/2019 and seeing the patient for a follow-up. Clinically improved. Less short of breath. No fever. No chills. Platelet counts are improving and the patient started on IV Solu-Medrol 60 mg every 6 hours. Repeat chest x-ray was done and the patient showed bilateral pleural effusion. Based on that, ultrasound of the chest was done and the patient was found to have a 9.4 cm pocket on the right upper lip 0.8 cm pocket on the left marked for thorace ntesis. Clinically however, the patient's pulse is up to 92% on room air and is not having any respiratory distress. He is afebrile for now. Breathing comfortably. 10/21/2019 I'm seeing the patient for a follow-up. No major complaints. His cough and upon taking a deep breath. Ultrasound the chest was done and showed bilateral pleural effusion and the patient would benefit from thoracentesis for symptomatic relief. He remains on IV Solu-Medrol. The platelet count from yesterday was up to 90,000. No fever. No chills. No night sweats no other new complaints otherwise for now. On 10/22/2019 I'm seeing the patient for a follow-up. Note that a thoracentesis of the right lung was done yesterday and a total of 800 mL of fluid was removed successfully. On today's evaluation, the patient is feeling better. The plan was to proceed with a left-sided thoracentesis today knowing that the patient had moderate sized bilateral pleural effusions. No fever. No chills. No chest pain. The procedure was completed yesterday without any complications. No other issues over the past 24 hours. Objective - Vital Signs Vital signs: Vital Signs Temp 97.5 F L 10/22/19 05:00 Pulse 84 10/22/19 07:56 Resp 14 10/22/19 05:00 BP 124/75 10/22/19 05:00 Pulse Ox 94 L 10/22/19 05:00 Intake & Output 10/21/19 10/22/19 10/22/19 18:59 06:59 18:59 Intake Total 540 Output Total 400 Balance 140 Intake: Oral 540 Output: Urine 400 Other: Voiding Method Toilet Toilet # Voids 2 2 - Exam The patient appeared well nourished and normally developed. Vital signs as documented. Currently the patient is on room air oxygen The patient was transitioned to room air oxygen maintaining her pulse ox of 92%. He is tachycardic and his sinus tachycardia. Head exam is unremarkable. No scleral icterus or corneal arcus noted. Neck is without jugular venous distension, thyromegaly, or carotid bruits. Carotid upstrokes are brisk bilaterally. Lungs are diminished breath sounds in the left lung base and there is dullness to percussion the mid and lower lung ann bilaterally.. Cardiac exam reveals the PMI to be normally sized and situated. Rhythm is regular. First and second heart sounds normal. No murmurs, rubs or gallops. Abdominal exam reveals normal bowel sounds, no masses, no organomegaly and no aortic enlargement. Extremities are nonedematous and both femoral and pedal pulses are normal.Examination of the skin revealed no evidence of significant rashes, suspicious appearing nevi or other concerning lesions. Neurologically awake and alert and is no focal neurological deficits. - Labs CBC & Chem 7: 10/22/19 06:41 10/20/19 06:33 Labs: Abnormal Lab Results - Last 24 Hours (Table) 10/21/19 10/21/19 10/21/19 Range/Units 11:28 13:18 16:55 WBC 16.5 H (3.8-10.6) k/uL Neutrophils # 14.7 H (1.3-7.7) k/uL POC Glucose (mg/dL) 199 H 157 H (75-99) mg/dL 10/21/19 10/22/19 Range/Units 19:42 06:41 WBC 13.7 H (3.8-10.6) k/uL Neutrophils # 10.6 H (1.3-7.7) k/uL POC Glucose (mg/dL) 135 H (75-99) mg/dL Microbiology - Last 24 Hours (Table) 10/21/19 12:00 Gram Stain - Preliminary Pericardial Fluid Body Fluid Culture - Preliminary 10/18/19 14:43 Blood Culture - Preliminary Blood No Growth after 72 hours Assessment and Plan Plan: 1 severe acute shortness of breath following a flu shot approximately 3 weeks ago followed by symptoms of URI and currently patient is presenting to the hospital because of moderate-sized bilateral pleural effusion, hypoxic respiratory failure, worsening shortness of breath and new onset thrombocytopenia. Consider reaction to flu shot as flu shots have been reported to cause immune related reactions including thrombocytopenia. Consider viral pleuritis with secondary thrombocytopenia. I favor the possibility of an acute viral infection knowing the patient has significant lymphocytosis in the order of 40% and his CBC. Doubt bacterial infection at this point in time. Doubt malignancy. Doubt an acute rheumatologic presentation. 2 acute hypoxic respiratory failure secondary to above, recovered 3 acute thrombocytopenia, consider viral-induced ITP versus vaccination-induced, improving 4 sinus tachycardia, recovered 5 bilateral pleural effusion postthoracentesis on the right successful evacuation of 800 mL of fluids. There is some residual left-sided pleural eff usion for now. Plan Patient will undergo a left-sided thoracentesis today for symptomatic relief. The fluid is probably a transudate. Awaiting fluid cultures. Awaiting fluid cytology. Platelet count improved. He was taken off the Solu-Medrol. He can be going home today following the thoracentesis on a prednisone burst taper. He can be followed up in my office next week.
[2019-10-22 11:15] LABS: Glucose,Whole Blood 123 mg/dL (75-99)
[2019-10-22 11:29] VITALS: BP 121/78; RESP 20; TEMP 98.2
[2019-10-22 12:26] VITALS: PULSE 86
[2019-10-22] MEDS: AZITHROMYCIN 500 MG TAB PO SCH (13:00)
--- NOTE | 2019-10-22 19:55 | P.PN ---
Subjective Progress Note Date: 10/22/19 Principal diagnosis: thrombocytopenia This is a very pleasant 24-year-old gentleman with no significant past medical history other than low IQ, who was not feeling well over the past several weeks developed cough and sputum production and 17 and shortness of breath or pain on the left side which was increasing subsequently came to the hospital for further evaluation had a chest x-ray done that showed bilateral lesions and significant thrombocytopenia. The patient had a CAT scan of chest which showed large bilateral pleural effusion with pulmonary opacities. Patient was tachycardic as well .The patient has been evaluated by pulmonary, and antibiotics have been started. However patient is getting more short of breath. On review of labs white count of 13,000 elevated, platelet count has dropped to 18,000 with neutrophil count Elevated. As such no recent history of infections. 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 patient is feeling better no evidence of bleeding, Objective - Vital Signs Vital signs: Vital Signs Temp 98.2 F 10/22/19 11:28 Pulse 86 10/22/19 12:36 Resp 20 10/22/19 11:28 BP 121/78 10/22/19 11:28 Pulse Ox 98 10/22/19 11:28 Intake & Output 10/22/19 10/22/19 10/23/19 06:59 18:59 06:59 Intake Total 540 Output Total 400 Balance 140 Intake: Oral 540 Output: Urine 400 Other: Voiding Method Toilet Toilet # Voids 2 - Exam The patient appeared well nourished and normally developed. Vital signs as documented. Head exam is unremarkable. No scleral icterus or corneal arcus noted. Neck is without jugular venous distension, thyromegaly, or carotid bruits. Carotid upstrokes are brisk bilaterally. Lungs are clear to auscultation and percussion. Cardiac exam reveals the PMI to be normally sized and situated. Rhythm is regular. First and second heart sounds normal. No murmurs, rubs or gallops. Abdominal exam reveals normal bowel sounds, no masses, no organomegaly and no aortic enlargement. Extremities are nonedematous and both femoral and pedal pulses are normal. - Labs CBC & Chem 7: 10/22/19 06:41 10/20/19 06:33 Labs: Abnormal Lab Results - Last 24 Hours (Table) 10/22/19 10/22/19 Range/Units 06:41 11:04 WBC 13.7 H (3.8-10.6) k/uL Neutrophils # 10.6 H (1.3-7.7) k/uL POC Glucose (mg/dL) 123 H (75-99) mg/dL Microbiology - Last 24 Hours (Table) 10/21/19 12:00 Gram Stain - Preliminary Pericardial Fluid Body Fluid Culture - Preliminary 10/18/19 14:43 Blood Culture - Preliminary Blood No Growth after 96 hours Assessment and Plan Plan: Impression and plan: 1. 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 - patient has been appropriately started on steroids.IV Solu-Medrol. - Rule out other causes check fibrinogen, d-dimer to rule out DIC, check haptoglobin and LDH for hemolysis. Check B12 folate levels. - peripheral smear for schistocytes. - Check EBV, CMV, Parvovirus, HIV and Hepatitis. - Current white count elevated at 18, hemoglobin 12.9, platelets improving to 90,000, will reserve immunoglobulins in case there is a relapse. - Lymphocytosis suggests a viral infection, elevated haptoglobin globulin secondary to acute phase reaction, neutrophilia present. Smear does not show any evidence of leukemia or lymphoma. - PT/INR APTT normal, nnormal LDH,fibrinogen normal d-dimer elevated no evidence of DIC - monitor platelets daily. - Will suggest a slow taper of steroids over 1-2 weeks. - platelets improved currently 184 now. 2. Respiratory distress, pneumonia with bilateral pleural effusions: - will likely need thoracentesis, pulmonary on consult. - Continue antibiotics. - cultures negative. 3. Sinus tachycardia. 4. Leukocytosis likely secondary to infection. Thank you for allowing me to participate in the care of your patient. Neisha Luque MD Compounding And Finishing Supervisor, [facility] [id number], [address] [place] [address] Office: [phone]
--- NOTE | 2019-10-23 07:59 | DS ---
DISCHARGE SUMMARY DATE OF SERVICE: 10/22/2019 FINAL DIAGNOSES: 1. Acute bilateral pneumonia with bilateral pleural effusion left more than the right with left pleurisy and possible community-acquired pneumonia, possibly viral. 2. Left pleural effusion, status post thoracocentesis. 3. Increased WBC. 4. Mild to moderate bilateral pleural effusion. 5. Severe thrombocytopenia, possibly secondary to viral etiology of infectious etiology which improved. 6. Increased random pressures. DISCHARGE DISPOSITION: The patient will be discharged in A stable condition with guarded prognosis. HISTORY OF PRESENT ILLNESS: This is a 24-year-old gentleman with a past medical history of no significant medical issues, admitted with bilateral pneumonia as well as thrombocytopenia, treated with IV antibiotics and steroids. Patient improved significantly. Dr. Soriano saw the patient. Left pleural effusion was tapped by Dr. Soriano, the final reports are pending at this time. Overall, patient made significant improvement. Hematology, Oncology also saw the patient. Platelets normalized at this time. On exam, vitals are stable. CARDIOVASCULAR SYSTEM: S1, S2. RESPIRATION few scattered rhonchi. ABDOMEN: Soft. NERVOUS SYSTEM: No focal deficits. DISCHARGE ADVICE: 1. Diet is cardiac diet. 2. Activity limited until followup. 3. Follow up with Dr. España in 2-3 days. 4. Follow up with Dr. Soriano as recommended. DISCHARGE MEDICATIONS: 1. Motrin p.r.n. 2. Phenergan p.r.n. 3. Omnicef 300 mg p.o. b.i.d. for 5 days. 4. Prednisone 40 mg daily for 3 days, 30 for 3 days, 20 for 3 days, 10 for 3 days. 5. ProAir q.i.d. 6. Zithromax 500 mg p.o. daily. Once again, the patient will be discharged in a stable condition with guarded prognosis. MMODL / IJN: [id number] /
== END 2019-10-22 13:10 | disposition home or self-care (01) | DRG 193 ==
LOC: EC 12:57 → 3NMEDONC 16:03
PROVIDERS: ADMIT Hospitalist; ATTEND Hospitalist
PROC: 0W9B3ZX Drainage of Left Pleural Cavity, Percutaneous Approach, Diagnostic (ICD-10-PCS; principal; 2019-10-21)
DX: J12.9 Viral pneumonia, unspecified (principal); J96.01 Acute respiratory failure with hypoxia; J90 Pleural effusion, not elsewhere classified; D69.3 Immune thrombocytopenic purpura; I31.3 Pericardial effusion (noninflammatory); J98.11 Atelectasis; D72.820 Lymphocytosis (symptomatic); R73.9 Hyperglycemia, unspecified
CPT/HCPCS: 36415; 71045; 71046; 71260; 76604; 80048; 80051; 81001; 82565; 82803; 82945; 83010; 83605; 83615; 84157; 84443; 84520; 85025; 85379; 85384; 85610; 85652; 85730; 86140; 86645; 86663; 86664; 86665; 86705; 86709; 86738; 86747; 86803; 87040; 87070; 87205; 87252; 87340; 87390; 87449; 87496; 87498; 87502; 87529; 87634; 87798; 89050; 93005; 93306; 94640; 94760; 96361; 96365; 96372; 99285

== ENCOUNTER → 2019-11-08 | Outpatient (CLI) | payer BC ==
[2019-11-08 09:06] LABS: Basophils # (A) 0.1 k/uL (0-0.2); Basophils % (A) 2 %; Eosinophils # (A) 0.3 k/uL (0-0.7); Eosinophils % (A) 5 %; HCT 45.3 % (39.0-53.0); HGB 15.2 gm/dL (13.0-17.5); Lymphocytes # (A) 2.6 k/uL (1.0-4.8); Lymphocytes % (A) 41 %; MCH 29.1 pg (25.0-35.0); MCHC 33.6 g/dL (31.0-37.0); MCV 86.5 fL (80.0-100.0); Mean Platelet Volume 7.4; Monocytes # (A) 0.6 k/uL (0-1.0); Monocytes % (A) 9 %; Neutrophils # (A) 2.6 k/uL (1.3-7.7); Neutrophils % (A) 41 %; RBC 5.24 m/uL (4.30-5.90); RDW 12.4 % (11.5-15.5); WBC 6.4 k/uL (3.8-10.6)
[2019-11-08 09:47] LABS: Platelet Count 62 k/uL (150-450)
== END | disposition home or self-care (01) ==
LOC: LABWHC1 08:43
PROVIDERS: ATTEND Internal Medicine Critical Care Medicine
DX: J90 Pleural effusion, not elsewhere classified (principal)
CPT/HCPCS: 36415; 85025

== ENCOUNTER → 2019-12-17 | Outpatient (CLI) | payer BC ==
[2019-12-17 12:17] LABS: HCT 46.3 % (39.0-53.0); HGB 15.1 gm/dL (13.0-17.5); MCH 27.4 pg (25.0-35.0); MCHC 32.6 g/dL (31.0-37.0); MCV 84.1 fL (80.0-100.0); Mean Platelet Volume 6.7; RDW 12.3 % (11.5-15.5); WBC 5.3 k/uL (3.8-10.6)
[2019-12-17 12:20] LABS: ALT 29 U/L (4-49); AST 29 U/L (17-59); African American GFR (CKD) >90 (>60 ml/min/1.73 sqM); Albumin 4.4 g/dL (3.5-5.0); Alkaline Phosphatase 60 U/L (38-126); Anion Gap 7 mmol/L; Blood Urea Nitrogen 15 mg/dL (9-20); Calcium 9.3 mg/dL (8.4-10.2); Carbon Dioxide 27 mmol/L (22-30); Chloride 107 mmol/L (98-107); Glucose 105 mg/dL (74-99); Non-African American GFR(CKD) >90 (>60 ml/min/1.73 sqM); Potassium 4.6 mmol/L (3.5-5.1); Sodium 141 mmol/L (137-145); Total Bilirubin 0.7 mg/dL (0.2-1.3); Total Protein 7.1 g/dL (6.3-8.2)
[2019-12-17 12:26] LABS: Platelet Count 329 k/uL (150-450)
== END | disposition home or self-care (01) ==
LOC: RADXRMAIN 11:24
PROVIDERS: ATTEND Internal Medicine
DX: D69.6 Thrombocytopenia, unspecified (principal)
CPT/HCPCS: 80053; 85027

== ENCOUNTER 2022-02-09 18:06 | Emergency (ER) | payer BC ==
[2022-02-09 18:13] VITALS: TEMP 97.6
[2022-02-09] MEDS ORDERED: SODIUM CHLORIDE 0.9% 500 ML 500 ML IV STA (18:52)
[2022-02-09 19:29] LABS: Basophils # (A) 0.1 k/uL (0-0.2); Basophils % (A) 1 %; Eosinophils # (A) 0.2 k/uL (0-0.7); Eosinophils % (A) 3 %; HCT 46.4 % (39.0-53.0); HGB 15.4 gm/dL (13.0-17.5); Lymphocytes # (A) 2.3 k/uL (1.0-4.8); Lymphocytes % (A) 26 %; MCH 28.8 pg (25.0-35.0); MCHC 33.3 g/dL (31.0-37.0); MCV 86.5 fL (80.0-100.0); Mean Platelet Volume 6.9; Monocytes # (A) 0.6 k/uL (0-1.0); Monocytes % (A) 7 %; Neutrophils # (A) 5.4 k/uL (1.3-7.7); Neutrophils % (A) 61 %; Platelet Count 327 k/uL (150-450); RBC 5.36 m/uL (4.30-5.90); RDW 11.9 % (11.5-15.5); WBC 8.8 k/uL (3.8-10.6)
[2022-02-09 19:39] LABS: ALT 82 U/L (4-49); AST 38 U/L (17-59); African American GFR (CKD) >90 (>60 ml/min/1.73 sqM); Albumin 4.4 g/dL (3.5-5.0); Alkaline Phosphatase 67 U/L (38-126); Anion Gap 9 mmol/L; Blood Urea Nitrogen 15 mg/dL (9-20); Calcium 9.2 mg/dL (8.4-10.2); Carbon Dioxide 24 mmol/L (22-30); Chloride 106 mmol/L (98-107); Glucose 165 mg/dL (74-99); Lipase 41 U/L (23-300); Magnesium 1.8 mg/dL (1.6-2.3); Non-African American GFR(CKD) >90 (>60 ml/min/1.73 sqM); Sodium 139 mmol/L (137-145); Total Bilirubin 0.5 mg/dL (0.2-1.3); Total Protein 7.1 g/dL (6.3-8.2)
[2022-02-09 19:43] LABS: INR 0.9 (<1.2); Partial Thromboplastin Time 23.8 sec (22.0-30.0); Prothrombin Time 9.8 sec (9.0-12.0)
--- NOTE | 2022-02-09 20:50 | XR ---
EXAMINATION TYPE: XR chest 2V DATE OF EXAM: 02/09/2022 8:46 PM COMPARISON:Chest radiographs from 10/22/2019 TECHNIQUE: XR chest 2V Frontal and lateral views of the chest. CLINICAL INDICATION:Male, 26 years old with history of chest pain; FINDINGS: Lungs/Pleura: There is no evidence of pleural effusion, focal consolidation, or pneumothorax. Pulmonary vascularity: Unremarkable. Heart/mediastinum: Cardiomediastinal silhouette is unremarkable. Musculoskeletal: No acute osseous pathology. Other findings: None IMPRESSION: No acute cardiopulmonary disease/process.
--- NOTE | 2022-02-09 21:19 | ED ---
Chest Pain HPI - General Chief Complaint: Chest Pain Stated Complaint: Chest Pain Time Seen by Provider: 02/09/22 18:30 Source: patient Mode of arrival: wheelchair Limitations: no limitations - History of Present Illness Initial Comments: Patient complains of chest pain. Pain is in the middle of the chest. It doesn't radiate anywhere. Nothing makes it better or worse. He has taken no medicines for this. He wasn't doing anything this began. He has intermittent shortness of breath. He has no pain or swelling in the arms or legs. He has no focal weakness. He has no lightheadedness. He has no dizziness. - Related Data Home Medications Medication Instructions Recorded Confirmed Ibuprofen [Motrin Ib] 400 mg PO Q6H PRN 10/18/19 02/09/22 Cephalexin [Keflex] 500 mg PO Q6H 02/09/22 02/09/22 Allergies Allergy/AdvReac Type Severity Reaction Status Date / Time No Known Allergies Allergy Verified 02/09/22 20:42 Review of Systems ROS Statement: Those systems with pertinent positive or pertinent negative responses have been documented in the HPI. ROS Other: All systems not noted in ROS Statement are negative. EKG Findings - EKG Comments: EKG Findings:: Twelve-lead EKG shows ventricular 120 bpm, normal IL interval and QRS complexes, no ST elevation or depression, interpreted by me as sinus tachycardia. 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 Absent: scleral icterus, conjunctival injection, periorbital swelling ENT exam: Present: normal exam, mucous membranes moist Neck exam: Present: normal inspection. Absent: tenderness, meningismus, lymph adenopathy Respiratory exam: Present: normal lung sounds bilaterally. Absent: respiratory distress, wheezes, rales, rhonchi, stridor Cardiovascular Exam: Present: regular rate, normal rhythm, normal heart sounds. Absent: systolic murmur, diastolic murmur, rubs, gallop, clicks GI/Abdominal exam: Present: soft, normal bowel sounds. Absent: distended, tenderness, guarding, rebound, rigid Extremities exam: Present: normal inspection, full ROM, normal capillary refill. Absent: tenderness, pedal edema, joint swelling, calf tenderness Back exam: Present: normal inspection Neurological exam: Present: alert, oriented X3, CN II-XII intact Psychiatric exam: Present: normal affect, normal mood Skin exam: Present: warm, dry, intact, normal color. 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 His labs are all normal. His chest x-rays negative. Troponin is negative. D-dimer is negative. He is given IV fluids. He is a symptomatic on reevaluation. I can find no evidence of an acute emergent. He is stable for discharge. Disposition Clinical Impression: Chest pain Disposition: HOME SELF-CARE Condition: Good Instructions (If sedation given, give patient instructions): Chest Pain (ED) Is patient prescribed a controlled substance at d/c from ED?: No Referrals: Jovanny España MD [Primary Care Provider] - 1-2 days David Johnson MD [STAFF PHYSICIAN] - 1-2 days
[2022-02-09 21:26] VITALS: BP 149/94; PULSE 115; RESP 16
[2022-02-10 19:53] LABS: Hepatitis A Antibody IgM Nonreactive (Nonreactive); Hepatitis B Core IgM Nonreactive (Nonreactive); Hepatitis B Surface Antigen Nonreactive (Nonreactive); Hepatitis C IgG Antibody Nonreactive (Nonreactive)
== END 2022-02-09 21:47 | disposition home or self-care (01) ==
LOC: EC 18:06
DX: R07.89 Other chest pain (principal); R94.5 Abnormal results of liver function studies
CPT/HCPCS: 36415; 71046; 80053; 80074; 83690; 83735; 83880; 84443; 84484; 85025; 85379; 85610; 85730; 93005; 96360; 99285

== ENCOUNTER 2023-05-30 19:36 | Emergency (ER) | payer BC ==
[2023-05-30 19:40] VITALS: BP 153/95; PULSE 64; RESP 16; TEMP 97.4
[2023-05-30] MEDS ORDERED: CEPHALEXIN 500 MG CAP PO STA (20:17)
--- NOTE | 2023-05-30 20:18 | ED ---
General Adult HPI - General Chief complaint: Wound/Laceration Stated complaint: Toe pain Time Seen by Provider: 05/30/23 19:47 Source: patient, RN notes reviewed Mode of arrival: ambulatory Limitations: no limitations - History of Present Illness Initial comments: 27-year-old male with no significant past medical history presents the emergency department the chief complaint of bilateral total pain. Patient reports that he has had ingrown toenails 4 months. He denies any fevers or trauma. He reports that he has PCP appointment on Wednesday06/02/2023. - Related Data Home Medications Medication Instructions Recorded Confirmed Ibuprofen [Motrin Ib] 400 mg PO Q6H PRN 10/18/19 02/09/22 Cephalexin [Keflex] 500 mg PO Q6H 02/09/22 02/09/22 Previous Rx's Medication Instructions Recorded Cephalexin [Keflex] 500 mg PO BID #14 cap 05/30/23 Allergies Allergy/AdvReac Type Severity Reaction Status Date / Time No Known Allergies Allergy Verified 02/09/22 20:42 Review of Systems ROS Statement: Those systems with pertinent positive or pertinent negative responses have been documented in the HPI. ROS Other: All systems not noted in ROS Statement are negative. Past Medical History Past Medical History: No Reported History Additional Past Medical History / Comment(s): outpatient was thinking pneumonia before admission, per mother is is cognitively impaired about the mentality of a 18 year old History of Any Multi-Drug Resistant Organisms: None Reported Past Surgical History: No Surgical Hx Reported Past Psychological History: No Psychological Hx Reported Smoking Status: Never smoker Past Alcohol Use History: None Reported Past Drug Use History: None Reported - Past Family History Father Family Medical History: No Reported History General Exam - General Exam Comments Initial Comments: General: Alert, in no acute distress Head: atraumatic normocephalic. Eyes PERRL, EOMI intact, mucous membranes moist Respiratory: Lungs clear to auscultation bilaterally Cardiovascular: Heart rate regular rate and rhythm Abdominal: Soft without guarding or rebound Extremities: Normal inspection with full range of motion and normal capillary refill Neuroogic: alert and oriented 3, CN II-XII intact, able to ambulate with steady gait Skin: warm dry and intact with normal color Limitations: no limitations Course Vital Signs 05/30/23 19:37 Temperature 97.4 F L Pulse Rate 64 Respiratory 16 Rate Blood Pressure 153/95 O2 Sat by Pulse 100 Oximetry Medical Decision Making - Medical Decision Making Was pt. sent in by a medical professional or institution ([facility], [facility], urgent care, hospital, or jail...) When possible be specific @ -[No] Did you speak to anyone other than the patient for history (EMS, parent, family, police, friend...)? What history was obtained from this source @ -[No] Did you review nursing and triage notes (agree or disagree)? Why? @ -[I reviewed and agree with nursing and triage notes] Were old charts reviewed (outside hosp., previous admission, EMS record, old EKG, old radiological studies, urgent care reports/EKG's, jail records)? Report findings @ -[No old charts were reviewed] Differential Diagnosis (chest pain, altered mental status, abdominal pain women, abdominal pain men, vaginal bleeding, weakness, fever, dyspnea, syncope, headache, dizziness, GI bleed, back pain, seizure, CVA, palpatations, mental health, musculoskeletal)? @ -[not applicable] EKG interpreted by me (3pts min.). @ -[As above] X-rays interpreted by me (1pt min.). @ -[None done] CT interpreted by me (1pt min.). @ -[None done] U/S interpreted by me (1pt. min.). @ -[None done] What testing was considered but not performed or refused? (CT, X-rays, U/S, labs)? Why? @ -[None] What meds were considered but not given or refused? Why? @ -[None] Did you discuss the management of the patient with other professionals (professionals i.e. [facility], [facility], lab, RT, psych nurse, oncology social worker, nurse companion, teacher, transportation security officer, counseling case manager)? Give summary @ -[No] Was smoking cessation discussed for >3mins.? @ -[No] Was critical care preformed (if so, how long)? @ -[No] Were there social determinants of health that impacted care today? How? (Homelessness, low income, unemployed, alcoholism, drug addiction, transportation, low edu. Level, literacy, decrease access to med. care, group home, rehab)? @ -[No] Was there de-escalation of care discussed even if they declined (Discuss DNR or withdrawal of care, Hospice)? DNR status @ -[No] What co-morbidities impacted this encounter? (DM, HTN, Smoking, COPD, CAD, Cancer, CVA, ARF, Chemo, Hep., AIDS, mental health diagnosis, sleep apnea, morbid obesity)? @ -[None] Was patient admitted / discharged? Hospital course, mention meds given and route, prescriptions, significant lab abnormalities, going to OR and other pertinent info. @ -[Discharged. This is a pleasant 27-year-old male who presents to the emergency department with bilateral toe pain. Patient had thorough history and physical exam performed on the ED. Physical exam is essentially unremarkable. I discussed the results in detail with the patient verbalized understanding and all questions were addressed. Return precautions were discussed at length. Patient was given a prescription for Keflex. Patient was discharged home in stable condition. With recommend close follow-up in 1-2 days with PCP. I discussed the case with Dr. Gume HARE who agrees with plan of care Undiagnosed new problem with uncertain prognosis? @ -[No] Drug Therapy requiring intensive monitoring for toxicity (Heparin, Nitro, Insulin, Cardizem)? @ -[No] Were any procedures done? @ -[No] Diagnosis/symptom? @ -Bilateral Ingrown Toenails Acute, or Chronic, or Acute on Chronic? @ -Acute Uncomplicated (without systemic symptoms) or Complicated (systemic symptoms)? @ -Uncomplicated Side effects of treatment? @ -[No] Exacerbation, Progression, or Severe Exacerbation? @ -[No] Poses a threat to life or bodily function? How? (Chest pain, [place], [place], pneumonia, PE, COPD, DKA, ARF, appy, cholecystitis, CVA, Diverticulitis, Homicidal, Suicidal, threat to staff... and all critical care pts) @ Low likelihood Disposition Clinical Impression: Ingrown toenail Disposition: HOME SELF-CARE Condition: Stable Instructions (If sedation given, give patient instructions): Ingrown Nail (ED) Additional Instructions: Please follow-up with her PCP on your Wednesday appointment Keep the area clean and dry and wash daily Please return to the nearest emergency department if fever develops Prescriptions: Cephalexin [Keflex] 500 mg PO BID #14 cap Is patient prescribed a controlled substance at d/c from ED?: No Referrals: None,Stated [Primary Care Provider] - 1-2 days Time of Disposition: 20:19
== END 2023-05-30 20:31 | disposition home or self-care (01) ==
LOC: EC 19:36
DX: L60.0 Ingrowing nail (principal)
CPT/HCPCS: 99283